=== PATIENT | female | born 1955 | race Caucasian/White ===

== ENCOUNTER → 2018-04-29 10:57 | Outpatient (CLI) | payer OTHER, SELFPAY ==
--- NOTE | 2018-04-29 11:06 | BI_ITS ---
MAMMOGRAPHY - BILATERAL SCREENING REASON FOR EXAM: Female, 62 years old. Routine annual screening examination. PERTINENT HISTORY: Mother with breast cancer. TECHNIQUE: Digital bilateral breast brett (3D mammographic acquisition) in the CC and MLO projections. 2-D mediolateral oblique (MLO) and craniocaudad (CC) views of both breasts were obtained. CAD: Full Field Digital Mammography with Computer Added Detection was performed. COMPARISON: Comparison is made with prior study dated December 31, 2016 and June 24, 2015. FINDINGS: Breast Composition: There are scattered areas of fibroglandular density. There are no dominant masses or suspicious calcifications. Stable benign-appearing bilateral axillary lymph nodes. No other significant abnormalities are identified. There has been no significant change since the prior study. BI/SCREENING MAMM (CAD), BILAT IMPRESSION: Stable bilateral screening mammogram. Yearly follow-up mammogram recommended. (A) ASSESSMENT CATEGORY: BIRADS Category 2: Benign. A letter regarding these results will be sent to the patient by the facility within 30 days. Approximately 10% of breast cancers are not detected by mammography. A normal mammogram should not delay biopsy of a clinically suspicious abnormality. [id number] Electronically Signed: Philip Moreira, at 10:54 EDT , Service support ,
== END ==
PROVIDERS: Family Provider Family Medicine; PCP Family Medicine
DX: Z12.31 Encounter for screening mammogram for malignant neoplasm of breast (principal)
CPT/HCPCS: 77063; 77067

== ENCOUNTER 2019-08-01 16:04 | Emergency (ER) | payer OTHER, SELFPAY ==
[2019-08-01 16:05] VITALS: BP 154/79; PULSE 62; RESP 18; TEMP 36.2; O2SAT 93; BMI 29.8
--- NOTE | 2019-08-01 16:52 | RAD_ITS ---
STUDY: X-RAY CHEST REASON FOR EXAM: Female, 63 years old. pt having altered mental status for about last 2 days. not sleeping, sending weird text to sisters, unsure when she ate last. 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 hx of high anxiety. -- [ End ] TECHNIQUE: AP portable COMPARISON: Jul 05 2013 FINDINGS: The lungs are clear and expanded. There is no demonstrated pleural abnormality. Normal size heart. Normal mediastinum and marcela. Normal visualized pulmonary arteries. Normal visualized aortic arch and descending thoracic aorta. Normal visualized thoracic spine. Normal visualized ribs, clavicles, and shoulders. There is no demonstrated abnormality of the visualized soft tissue structures of the upper abdomen. No significant change since prior exam RAD/Chest 1 View (Portable) IMPRESSION: Normal x-ray examination of the chest. Electronically Signed: Rodrigo Sylvester MD at 18:19 EDT , Service support ,
--- NOTE | 2019-08-01 16:52 | EKG12_ITS ---
Test Reason : Blood Pressure : / mmHG Vent. Rate : 056 BPM Atrial Rate : 056 BPM P-R Int : 154 ms QRS Dur : 082 ms QT Int : 442 ms P-R-T Axes : 021 001 034 degrees QTc Int : 426 ms Sinus bradycardia Otherwise normal ECG Confirmed by CASIMIRO BULL, KODY ([id number]), acquisition editor MEI PULIDO ([id number]) on 08/06/2019 1:57:55 PM Referred By: MARIO Confirmed By:MIHIR KIRKPATRICK MD
--- NOTE | 2019-08-01 16:54 | CT_ITS ---
STUDY: CT BRAIN WITHOUT CONTRAST REASON FOR EXAM: Female, 63 years old. PT STATED MULTIPLE MENTAL STATUS CHANGES X 2 DAYS, CONFUSED RADIATION DOSAGE (If Supplied By Facility): CTDIvol = ( 60.81 ) mGy, DLP = ( 1044.28 ) mGycm TECHNIQUE: Transaxial CT imaging of the brain was performed without administration of intravenous contrast material. Individualized dose optimization techniques were used for this CT. COMPARISON: No relevant priors. FINDINGS: Normal soft tissue structures. Normal calvarium. Moderate atrophy and periventricular white matter ischemic changes.. Normal basal ganglia and thalami. Normal brainstem. Normal cerebellum. Empty sella deformity likely of no significance. There is no intracranial hemorrhage. There are no findings of an acute ischemic infarction. Postsurgical changes of the orbits. Normal visualized paranasal sinuses. CT/Brain/Head without Contrast IMPRESSION: Moderate atrophy and periventricular white matter ischemic change. No evidence for acute bleed. If concern for acute infarct MRI recommended Electronically Signed: Rodrigo Sylvester MD at 18:05 EDT , Service support ,
[2019-08-01 17:04] LABS: Absolute Lymphocyte Count 1.47 X10^3/uL (0.83-4.51); Absolute Neutrophil Count 4.5 X10^3/uL (2.0-7.7); Basophil# 0.02 X10^3/uL; Basophil% 0.3 % (0-1); Eosinophil# 0.02 X10^3/uL; Eosinophils% 0.3 % (0-5); Hematocrit 36.7 % (37-47); Hemoglobin 11.9 g/dL (12.0-15.0); Lymphocyte # 1.47 X10^3/ul (4.0); Lymphocyte % 22.7 % (19-41); Mean Corp Hgb Conc 32.4 g/dL (32-36); Mean Corpuscular Hgb 26.7 pg (27.0-32.0); Mean Corpuscular Volume 82.3 fL (81-99); Monocyte# 0.47 X10^3/uL; Monocyte% 7.3 % (0-10); NRBC Flagged by Analyzer 0 % (0-5); Neutrophil # 4.47 X10^3/uL (2.7-7.7); Neutrophil % 69.1 % (47-70); Platelet Count 226 K/mm3 (150-450); RBC Distribution Width SD 44.4 fl (35.1-43.9); Red Blood Count 4.46 M/mm3 (4.2-5.4); White Blood Count 6.5 K/mm3 (4.4-11.0)
--- NOTE | 2019-08-01 17:11 | ED.VISSUMM ---
- ER Visit Summary Date of Service: 08/01/19 Chief Complaint: Altered mental status History of Present Illness: The patient is a 63 F with altered mental status for 2 to 3 days. History was obtained from the patient and also from her home nurse Maryan. She has at home nurse to help take her medications and because of her severe depression and anxiety. Patient says she felt like I was away for the past couple days. She has been sending unusual text messages to her sister. Her nurse thinks she is not eating or taking her medications. At one point, she told her sister that she was looking for luggage from when she was in the years ago. She has a history of anxiety and depression. She recently started a new medicine, Abilify about 3 weeks ago. She has been hospitalized once for depression in the past. She is denying any suicidal or homicidal thoughts. She also has a history of obstructive sleep apnea, diabetes, and hypertension. Denies any regular alcohol use or drug use. Physical Examination: Afebrile and vital signs unremarkable. Head and neck are atraumatic. Cranial nerves grossly intact. Normal strength and sensation. Normal gait. Normal cerebellar testing. HEENT exam is limited because of a mask but otherwise shows normal inspection. Heart regular. No respiratory distress. Abdomen soft. Skin normal. Patient exhibits psychomotor slowing, slow to respond to questions. Once she begins speaking, she does have some tangential and trailing thoughts. She is slow to answer questions, but seems to get the answers right. Test Results: EKG, labs, urine, tox, alcohol, chest x-ray, CT brain pending Emergency Department Course and Treatment: It sounds like this might be a psychosis related to her depression. This may be worse because she is not taking her medications. She is on Abilify which is new, but she has been on it for 3 weeks. Her psychiatrist did not think that it is causing her symptoms. We will check for other causes. EKG showed sinus rhythm at a rate of 56. Chest x-ray was normal. Troponin normal. CT brain showed chronic changes, atrophy. Nothing acute. Hemoglobin 11.9, glucose 134, alkaline phosphatase 35, coags normal, urinalysis unremarkable, troponin normal. Alcohol negative. TSH normal. Tox screen is positive for methamphetamines and benzos. I suspect the methamphetamines are positive because she is on Wellbutrin. She has no history of methamphetamines and her complaint is not consistent with methamphetamine abuse. Social work evaluated the patient. I spoke with the patient's nurse as well as daughter. Social work spoke with the daughter to. She has good resources at home and will be discharged. There is no indication to admit her to [facility]. There is no indication for medical admission. Patient will return for new or worsening issues, otherwise follow-up as an outpatient. Treatment Plan: As above Disposition: Discharge Impression: Confusion This note was generated with [employer] dictation software. It may contain incorrect words, spelling, and punctuation that were not noted in review of the chart prior to signing ED Disposition - Plan for ED Patient: Referrals: Josi Mejia MD [Primary Care Provider] -
[2019-08-01 17:21] LABS: International Normalized Ratio 1.1; Partial Thromboplast Time 28.6 Seconds (24.1-36.2); Prothrombin Time (Protime)PT. 13.3 SECONDS (11.7-14.9)
[2019-08-01 17:24] LABS: ALB/GLOB Ratio 1.1 RATIO (0.9-2.4); AST(SGOT) 24 U/L (15-37); Alanine Aminotransfer ALT/SGPT 29 U/L (13-56); Albumin, Serum 4.1 g/dL (3.2-5.0); Alkaline Phosphatase 35 U/L (45-117); Anion Gap 7 (5-15); BUN 13 mg/dL (7-18); BUN/Creat Ratio 14.6 RATIO (10-20); Chloride 102 mmol/L (98-107); Creatinine, Serum 0.89 mg/dL (0.55-1.02); EST Glomerular Filtration Rate 68 mL/min (>60); Est Glom Filt Rate - Afr Amer 82 mL/min (>60); Estimated Creatinine Clearance 59.78 ml/min; Globulin 3.7 g/dL (2.2-4.2); Glucose 134 mg/dL (74-106); Potassium 3.8 mmol/L (3.5-5.1); Protein, Total 7.8 g/dL (6.4-8.2); Sodium Level 139 mmol/L (136-145); Thyroid Stim Hormone (TSH) 1.42 uIU/mL (0.358-3.74)
[2019-08-01 17:29] VITALS: BP 148/74; PULSE 59; RESP 12; TEMP 36.9; O2SAT 95
--- NOTE | 2019-08-01 18:10 | CM.ED ---
Social Work Consult: Mental Health Informant: Dr. Jack Chief Complaint: Reports to have been forgetful lately. Marital/Social History: Single Living Situation: Lives alone with 2 dogs. Support/Resources: Patient is 100% service connected. [facility] social media strategist is Jeri. Patient has nurse visits 3 times a week as well as aide services 3 days a week for 2-3 hour blocks. Patient has a medminder and is pending approval for a medical alert button. Patient sister lives close to patient and checks in with patient daily. History: Yes. Retired [employer]. Education/Employment History: Has Masters degree. Was a registered nurse. Currently retired. Reports no concerns with comprehension or understanding. Mental Health Treatment/History: Depression and Anxiety. [facility] mental health via medication. Patient follows with a psychiatric nurse at the [facility]. Patient with history of inpatient psychiatric placement in 1984. Triggers/Stressors: Denies Coping Skills: Spending time with dogs, listening to music, watching nature channel. Abuse Issues: Denies Substance Abuse/Use: Denies. Risk to Self/Others: Denies any suicidal/homicidal thoughts/plans or history of. Mental Status Exam: A&Ox3 Appearance/General Behavior: Clean/appropriate. Mood/Affect: Calm. Pleasant. Communication Pattern: Responds to questions. Thought Process: Appropriate. Denies any hallucinations or delusions. Assessment: Met with patient and patient sister, Lianet in room. Introduced self and social media strategist role. Patient agreeable to meet with this social media strategist. Patient wants sister to stay in room during conversation. Patient states to have came to ED today due to concerns of forgetting to take medications and believes to have missed one dose. Patient states to also be going to patient car to get suite case out as patient is thinking that patient has been traveling at times. Patient denies seeing suite case in car and to be able to correct thinking on own. Patient stating no concerns with returning to home and to have support from [facility] and patient sister. This social media strategist broached topic of patient sister checking in with patient more often and possible consideration of exploring options of patient no living alone anymore. Patient sister and patient voice understanding to this and understand reason for ED doctor concern as well as medical team. At this time patient plans to return to home alone with sister to check in with patient multiple times tomorrow. Patient appears to be copping well outside of recent periods of forgetfulness/confusion. Patient with no depression noted from PHQ-[address] Jack on above assessment. Dr. Jack initially wondering if patient would qualify for baudilio-psych. Patient does not appear to be meeting criteria at this time. Dr. Jack agreeable with plan for patient to discharge to home with continued services and support from sister. PLAN: Discharge to home alone with community resources. Garrick Arizmendi MSW, KAILYN
[2019-08-01 18:34] LABS: Alcohol, Blood (Medical)-Serum < 3.0 mg/dL
[2019-08-01 19:08] LABS: Mucous, Urine 0 SEEN /hpf (<or=2+); Red Blood Cells-Urine 0 SEEN /hpf (0-5)
[2019-08-01 19:13] VITALS: PULSE 58; RESP 19; TEMP 37.3; O2SAT 95
[2019-08-01 19:29] LABS: Color, Urine Yellow (Yellow); Glucose, Dipstick Normal (Normal); Ketone-Dipstick 15 mg/dl (Negative); Leukocyte Esterase-Dipstick Negative /ul (Negative); Nitrite-Dipstick Negative (Negative); Occult Blood-Urine Negative /ul (Negative); Protein-Dipstick Negative (Negative); Urine Bilirubin Dipstick Negative (Negative); Urine Clarity Sl. Cloudy (Clear); Urine Urobilinogen Normal (Normal)
[2019-08-01 19:37] LABS: Squamous Epithelial Cells - UA 0-5 SEEN /hpf (5-10); White Blood Cells 0-5 SEEN /hpf (0-5)
[2019-08-01 19:38] LABS: Bacteria RARE /hpf (None Seen)
[2019-08-01 19:47] LABS: Amphetamine Urine VISTA NEGATIVE (<1000 ng/mL); Barbiturate Urine VISTA NEGATIVE (< 200 ng/mL); Benzodiazepine Urine VISTA POSITIVE (< 200 ng/mL); Cocaine Urine VISTA NEGATIVE (< 300 ng/mL); Ecstacy Urine VISTA POSITIVE (< 500 ng/mL); Methadone Urine VISTA NEGATIVE (< 300 ng/mL); PCP Urine VISTA NEGATIVE (< 25 ng/mL); THC Urine VISTA NEGATIVE (< 50 ng/mL); Vista UDS pH Range 5
--- NOTE | 2019-08-01 20:04 | ED.DEP ---
ED Disposition - Plan for ED Patient: Instructions: ED Confusion Referrals: Josi Mejia MD [Primary Care Provider] - Additional Instructions: Tox screen positive for methamphetamines. This is a cross reaction with your prescribed wellbutrin and not a true positive.
[2019-08-01 20:16] VITALS: PULSE 60; RESP 18
== END 2019-08-01 20:17 | disposition home or self-care (01) ==
LOC: ED 17:04
PROVIDERS: Emergency Provider Emergency Medicine; PCP Family Medicine
DX: R41.82 Altered mental status, unspecified (principal); Z91.14 Patient's other noncompliance with medication regimen; F32.9 Major depressive disorder, single episode, unspecified; F41.9 Anxiety disorder, unspecified; I10 Essential (primary) hypertension; E11.9 Type 2 diabetes mellitus without complications; G47.33 Obstructive sleep apnea (adult) (pediatric); Z79.899 Other long term (current) drug therapy
CPT/HCPCS: 70450; 71045; 80053; 80307; 80320; 81001; 84443; 84484; 85025; 85610; 85730; 93005; 99284; G0480

== ENCOUNTER → 2019-09-14 12:37 | Outpatient (CLI) | payer OTHER, SELFPAY ==
--- NOTE | 2019-09-14 12:40 | RAD_ITS ---
STUDY: X-RAY - RIGHT WRIST REASON FOR EXAM: Female, 63 years old. Right wrist pain, fell beginning of July TECHNIQUE: 3 view(s) of the wrist were obtained. COMPARISON: None. FINDINGS: Normal visualized distal radius and ulna. There is degenerative arthrosis of the radiocarpal articulation. Normal distal radioulnar articulation. Normal carpal bones. Normal carpal articulations except for narrowing between the scaphoid and trapezium.. There is degenerative arthrosis of the carpometacarpal articulation of the thumb. Normal second through fifth carpometacarpal articulations. Normal visualized metacarpal bones. The soft tissue structures are unremarkable. There is no demonstrated acute fracture. RAD/Wrist min 3 Views IMPRESSION: Mild arthrosis, no demonstrated fracture or suspicious osseous lesion Electronically Signed: Umesh Neri MD at 12:58 EDT , Service support ,
== END ==
PROVIDERS: PCP Family Medicine; Referring Provider Family Medicine; Visit Provider Family Medicine
DX: M25.531 Pain in right wrist (principal)
CPT/HCPCS: 73110

== ENCOUNTER → 2020-06-11 07:42 | Outpatient (CLI) | payer OTHER, SELFPAY ==
--- NOTE | 2020-06-11 07:46 | BI_ITS ---
MAMMOGRAPHY - BILATERAL SCREENING REASON FOR EXAM: Female, 64 years old. Routine annual screening examination. PERTINENT HISTORY: Mother with breast cancer. TECHNIQUE: Digital bilateral breast niranjan (3D mammographic acquisition) in the CC and MLO projections. 2-D mediolateral oblique (MLO) and craniocaudad (CC) views of both breasts were obtained. CAD: Full Field Digital Mammography with Computer Added Detection was performed. COMPARISON: Comparison is made with prior study dated 04/29/2018 and 12/31/2016. FINDINGS: Breast Composition: There are scattered areas of fibroglandular density. There are no dominant masses or suspicious calcifications. Stable benign-appearing bilateral axillary lymph nodes. No other significant abnormalities are identified. There has been no significant change since the prior study. BI/SCRN MAMM (CAD)W/NIRANJAN BILAT IMPRESSION: Stable bilateral screening mammogram. Yearly follow-up mammogram recommended. (A) ASSESSMENT CATEGORY: BIRADS Category 2: Benign. A letter regarding these results will be sent to the patient by the facility within 30 days. Approximately 10% of breast cancers are not detected by mammography. A normal mammogram should not delay biopsy of a clinically suspicious abnormality. [id number] Electronically Signed: Philip Moreira MD at 9:19 EDT , Service support ,
== END ==
PROVIDERS: PCP Family Medicine
DX: Z12.31 Encounter for screening mammogram for malignant neoplasm of breast (principal)
CPT/HCPCS: 77063; 77067

== ENCOUNTER → 2020-06-13 16:12 | Outpatient (CLI) | payer OTHER, MEDICARE, SELFPAY ==
[2020-06-13 18:41] LABS: ALB/GLOB Ratio 1.1 RATIO (0.9-2.4); AST(SGOT) 14 U/L (15-37); Alanine Aminotransfer ALT/SGPT 19 U/L (13-56); Albumin, Serum 3.7 g/dL (3.2-5.0); Alkaline Phosphatase 36 U/L (45-117); Anion Gap 7 (5-15); BUN 14 mg/dL (7-18); BUN/Creat Ratio 14.7 RATIO (10-20); Calcium,Total 8.6 mg/dL (8.5-10.1); Chloride 98 mmol/L (98-107); Creatinine, Serum 0.95 mg/dL (0.55-1.02); EST Glomerular Filtration Rate 62 mL/min (>60); Est Glom Filt Rate - Afr Amer 75 mL/min (>60); Globulin 3.5 g/dL (2.2-4.2); Glucose 526 mg/dL (74-106); Potassium 4.2 mmol/L (3.5-5.1); Protein, Total 7.2 g/dL (6.4-8.2); Sodium Level 131 mmol/L (136-145)
== END ==
DX: I10 Essential (primary) hypertension (principal); E11.9 Type 2 diabetes mellitus without complications
CPT/HCPCS: 36415; 80053; 83036; 84443

== ENCOUNTER 2020-07-10 01:38 | Emergency (ER) | payer MEDICARE, OTHER, SELFPAY ==
[2020-07-10 01:39] VITALS: BP 181/88; PULSE 75; RESP 16; TEMP 36.5; O2SAT 94; BMI 31.0
[2020-07-10 01:42] VITALS: BP 181/88; PULSE 75; RESP 16; TEMP 36.5; O2SAT 94
[2020-07-10 02:16] VITALS: BP 143/75; PULSE 78; RESP 17; TEMP 36.4; O2SAT 98
--- NOTE | 2020-07-10 02:35 | EDS_ITS ---
HPI History of Present Illness Chief Complaint: Wound Informant: patient Onset/Context/Timing Onset: Today Context: Gradual Onset Timing: Continuous Quality of Pain: Throbbing Location: Right foot second toe Current Severity: Mild Maximum Severity: Moderate Worsened by: walking, palpation Relieved by: aleve that she took earlier, rest Associated Symptoms Associated Symptoms: Negative for Parasthesia, Weakness and Loss of Funtion Narrative Narrative: Patient states she was working in her garden today when she noticed that her toe started throbbing and hurting and she wondered if she injured it which she does not recall any specific injury. She has no systemic symptoms or fevers but she is a diabetic, and since this is on her foot and she has never had any issues before, she was concerned that this could be a diabetic ulcer so she presents for evaluation of it. She has had no discharge from the area. [facility] Medical History Depression Diabetes GERD (gastroesophageal reflux disease) Hypertension TIA (transient ischemic attack) Home Medications Divalproex Sodium 750 mg PO DAILY 08/01/19 [History Last Taken Unknown] aripiprazole 2 mg PO DAILY 08/01/19 [History Last Taken Unknown] atenolol 50 mg PO DAILY 08/01/19 [History Last Taken Unknown] bupropion HCl (smoking deter) 150 mg PO DAILY 08/01/19 [History Last Taken Unknown] cholecalciferol (vitamin D3) 2,000 unit PO DAILY 08/01/19 [History Last Taken Unknown] clobetasol-emollient 15 gm TP DAILY 08/01/19 [History Last Taken Unknown] desonide 1 applic TOPICAL BID 08/01/19 [History Last Taken Unknown] fnomyijoyj-gwxucfyocxp-zmaizw 30 gm TP BID 08/01/19 [History Last Taken Unknown] fluticasone propionate 1 spray NS DAILY 08/01/19 [History Last Taken Unknown] insulin aspart U-100 8 unit SQ TIDCM 08/01/19 [History Last Taken Unknown] insulin glargine 23 units SUBCUT QHS 08/01/19 [History Last Taken Unknown] levothyroxine 75 mcg PO DAILY 08/01/19 [History Last Taken Unknown] metformin 1,000 mg PO DAILY 08/01/19 [History Last Taken Unknown] montelukast 10 mg PO DAILY 08/01/19 [History Last Taken Unknown] multivitamin 1 ea PO DAILY 08/01/19 [History Last Taken Unknown] pantoprazole 20 mg PO DAILY 08/01/19 [History Last Taken Unknown] rosuvastatin 40 mg PO DAILY 08/01/19 [History Last Taken Unknown] sertraline 100 mg PO DAILY 08/01/19 [History Last Taken Unknown] trazodone 100 mg PO QHS 08/01/19 [History Last Taken Unknown] cephalexin 500 mg PO TID 7 Days #21 capsule 07/10/20 [Rx Last Taken Unknown] Allergy/AdvReac Type Severity Reaction Status Date / Time No Known Allergies Allergy Verified 08/01/19 16:10 Social History Smoking Status: Never smoker ROS ROS ED Constitutional Constitutional ED: Denies chills or fever(s) Musculoskeletal Musculoskeletal: Reports extremity pain; Denies neck pain Integumentary Reports abscess; Denies Abrasions or rash Neurologic Neurologic: Denies paresthesias or weakness EXAM Physical Exam Const Vital Signs: 07/10/20 01:39 07/10/20 01:42 07/10/20 02:16 Temperature 97.7 F L 97.7 F L 97.6 F L Temperature Source Oral Oral Temporal Pulse Rate 75 75 78 Respiratory Rate 16 16 17 Blood Pressure 181/88 H 181/88 H 143/75 H Blood Pressure Mean 119 119 97 Pulse Ox 94 94 98 Oxygen Delivery Method Room Air Room Air Room Air Positive well nourished and well developed General Appearance ED: well developed and NAD Neck full ROM and supple Back/Spine normal ROM and normal to inspection Extremity Extremity Narrative: Small tender paronychia without spontaneous discharge at the peroneal aspect of the right second toenail, with tender erythema along the entire base of the nail. Nail is intact. Full range of motion. No other foot abnormalities. Neuro oriented x3, no focal motor deficits and no sensory deficits noted Sensorium / Orientation: alert Psych mental status grossly normal and thought process normal Skin Skin Narrative: Paronychia right second toe, see above. Cellulitis extends around the paronychia and the nail, but not proximal to the IP joint. No lymphangitis. Foot otherwise normal. No plantar ulcers or wounds otherwise. Rashes: no rashes MDM MDM MDM Narrative Medical decision making narrative: Patient appears to have a straightforward paronychia, I reassured her this is not likely due to any injury that she had today. She was amenable to incision and drainage without local anesthesia or digital block. She tolerated this very well. Placed on cephalexin as I do not believe this is MRSA given that it is very small. We discussed reasons to return she is comfortable with that plan. We soaked her foot/toe and chlorhexidine/saline prior to discharge, dressed with bacitracin. Procedures Other Procedures Procedure(s): Incision and drainage paronychia right second toe -prepped with chlorhexidine, small central incision over the paronychia made with a #11 blade, tolerated procedure well without pain, purulent discharge expressed, soaked, dressed. Discharge Plan Triage Chief Complaint: Wound ED Provider: Pablo Hernandez Dx/Rx/DC Orders Clinical Impression: Paronychia of toe of right foot Instructions: ED Paronychia of the Finger or Toe Prescriptions: New cephalexin [cephalexin] 500 MG capsule 500 mg PO TID 7 Days Qty: 21 RF: 0 No Action desonide 1 APPLIC cream 1 applic topical BID RF: 0 fluticasone propionate 9.9 ML spray,suspension 1 spray NS DAILY RF: 0 atenolol 50 MG tablet 50 mg PO DAILY RF: 0 clobetasol-emollient 15 GM cream 15 gm TP DAILY RF: 0 aripiprazole 2 MG tablet 2 mg PO DAILY RF: 0 cholecalciferol (vitamin D3) 2,000 UNIT capsule 2,000 unit PO DAILY RF: 0 bupropion HCl (smoking deter) 150 MG tablet extended release 12 hr 150 mg PO DAILY RF: 0 vbhxrufokl-suoxqrcvpey-qjhfsd 30 GM gel 30 gm TP BID RF: 0 Divalproex Sodium 250 MG Tablet.Dr 750 mg PO DAILY RF: 0 multivitamin 1 EACH tablet 1 ea PO DAILY RF: 0 sertraline 100 MG tablet 100 mg PO DAILY RF: 0 pantoprazole 20 MG tablet,delayed release (DR/EC) 20 mg PO DAILY RF: 0 levothyroxine 75 MCG tablet 75 mcg PO DAILY RF: 0 trazodone 100 MG tablet 100 mg PO QHS RF: 0 metformin 1,000 MG tablet 1,000 mg PO DAILY RF: 0 montelukast 10 MG tablet 10 mg PO DAILY RF: 0 insulin aspart U-100 100 UNIT/ML insulin pen 8 unit SQ TIDCM RF: 0 rosuvastatin 40 MG tablet 40 mg PO DAILY RF: 0 insulin glargine 100 UNITS/ML insulin pen 23 units subcut QHS RF: 0 Referrals: SALLY GUY [Other] - As Needed Disposition Disposition: Home, self care
[2020-07-10] MEDS: Cephalexin 500 MG Capsule PO (02:47)
[2020-07-10 03:21] VITALS: BP 160/78; PULSE 73; RESP 17; RESP 18; TEMP 36.3; O2SAT 97; O2SAT 98
== END 2020-07-10 03:22 | disposition home or self-care (01) ==
PROVIDERS: Emergency Provider Emergency Medicine
DX: L03.031 Cellulitis of right toe (principal); I10 Essential (primary) hypertension; E11.9 Type 2 diabetes mellitus without complications; F32.9 Major depressive disorder, single episode, unspecified; K21.9 Gastro-esophageal reflux disease without esophagitis; Z86.73 Personal history of transient ischemic attack (TIA), and cerebral infarction without residual deficits; Z79.4 Long term (current) use of insulin; Z79.899 Other long term (current) drug therapy
CPT/HCPCS: 10060; 99283

== ENCOUNTER 2021-05-26 20:44 | Emergency (ER) | payer OTHER, SELFPAY ==
[2021-05-26 20:45] VITALS: BP 141/72; PULSE 63; RESP 16; TEMP 36.2; O2SAT 98; BMI 28.6
--- NOTE | 2021-05-26 20:49 | EKG12_ITS ---
Test Reason : CP Blood Pressure : / mmHG Vent. Rate : 053 BPM Atrial Rate : 053 BPM P-R Int : 164 ms QRS Dur : 090 ms QT Int : 450 ms P-R-T Axes : 029 032 051 degrees QTc Int : 422 ms Sinus bradycardia Otherwise normal ECG Confirmed by OLIVIA ZHU MD ([id number]), design editor CLAUDIO IVORY ([id number]) on 05/27/2021 2:12:28 PM Referred By: MALIKA Confirmed By:OLIVIA ZHU MD
--- NOTE | 2021-05-26 21:28 | RAD_ITS ---
INDICATION: chest pain EXAMINATION/TECHNIQUE: X-RAY - XR Chest 1 View 9:22 PM COMPARISON: 08/01/2019. FINDINGS: LUNGS: No consolidation. No pneumothorax. MEDIASTINUM: Unremarkable. CARDIAC SILHOUETTE: Not enlarged. BONES AND SOFT TISSUES: No acute abnormalities. IMPRESSION: No acute findings. Electronically Signed: Varsha Fairchild MD at 22:01 EDT , RAD/Chest 1 View (Portable)
[2021-05-26 21:54] LABS: Absolute Lymphocyte Count 2.33 X10^3/uL (0.83-4.51); Absolute Neutrophil Count 3.3 X10^3/uL (2.0-7.7); Basophil# 0.03 X10^3/uL; Basophil% 0.5 % (0-1); Eosinophil# 0.08 X10^3/uL; Eosinophils% 1.3 % (0-5); Hematocrit 37.3 % (37-47); Hemoglobin 12.3 g/dL (12.0-15.0); Lymphocyte # 2.33 X10^3/ul (0.83-4.51); Lymphocyte % 37.1 % (19-41); Mean Corpuscular Hgb 27.1 pg (27.0-32.0); Mean Corpuscular Volume 82.2 fL (81-99); Monocyte# 0.48 X10^3/uL; Monocyte% 7.6 % (0-10); NRBC Flagged by Analyzer 0 % (0-5); Neutrophil # 3.34 X10^3/uL (2.7-7.7); Neutrophil % 53.2 % (47-70); Platelet Count 218 K/mm3 (150-450); RBC Distribution Width CV 15.5 % (11.6-14.6); RBC Distribution Width SD 46.5 fl (35.1-43.9); Red Blood Count 4.54 M/mm3 (4.2-5.4); White Blood Count 6.3 K/mm3 (4.4-11.0)
[2021-05-26 22:10] LABS: Anion Gap 7 (5-15); BUN 20 mg/dL (7-18); BUN/Creat Ratio 22.7 RATIO (10-20); Calcium,Total 9.1 mg/dL (8.5-10.1); Chloride 103 mmol/L (98-107); Creatinine, Serum 0.88 mg/dL (0.55-1.02); EST Glomerular Filtration Rate 68 mL/min (>60); Est Glom Filt Rate - Afr Amer 82 mL/min (>60); Estimated Creatinine Clearance 58.87 ml/min; Glucose 163 mg/dL (74-106); Potassium 4.1 mmol/L (3.5-5.1); Sodium Level 138 mmol/L (136-145); Troponin-I HS < 3 pg/mL (3.0-54.0)
[2021-05-26] MEDS: Aspirin 81 MG TAB.CHEW 243 MG PO (22:13)
--- NOTE | 2021-05-26 22:41 | ED.VIS.CHEST ---
HPI History of Present Illness Chief Complaint: Chest Pain Informant: patient Onset/Context/Timing Onset: Today Activity at onset: sudden Timing: Lasts (30 seconds) Quality: Positive for Pain Location: Substernal Current Severity: Gone Maximum Severity: Moderate Narrative Narrative: Patient presents after having her third episode of chest pain in the last week. She states she was sitting at rest this evening when she developed pain over the substernal area. Symptoms lasted approximately 30 seconds and spontaneously resolved. She denies having palpitations or feeling her heart was racing. She did not feel short of breath. She did not feel as if she was went to pass out. She reports 2 prior episodes in the last week with similar symptoms lasting less than 1 minute each. Patient does not have a personal history of cardiac problems. Family history is only positive for a pacemaker in her father. [facility] Medical History Depression Diabetes GERD (gastroesophageal reflux disease) Hypertension TIA (transient ischemic attack) Home Medications Divalproex Sodium 750 mg PO DAILY 08/01/19 [History Last Taken Unknown] aripiprazole 2 mg PO DAILY 08/01/19 [History Last Taken Unknown] atenolol 50 mg PO DAILY 08/01/19 [History Last Taken Unknown] bupropion HCl (smoking deter) 150 mg PO DAILY 08/01/19 [History Last Taken Unknown] cholecalciferol (vitamin D3) 2,000 unit PO DAILY 08/01/19 [History Last Taken Unknown] clobetasol-emollient 15 gm TP DAILY 08/01/19 [History Last Taken Unknown] desonide 1 applic TOPICAL BID 08/01/19 [History Last Taken Unknown] wuaiexdems-pikwzaxwhtz-ttdpof 30 gm TP BID 08/01/19 [History Last Taken Unknown] fluticasone propionate 1 spray NS DAILY 08/01/19 [History Last Taken Unknown] insulin aspart U-100 8 unit SQ TIDCM 08/01/19 [History Last Taken Unknown] insulin glargine 23 units SUBCUT QHS 08/01/19 [History Last Taken Unknown] levothyroxine 75 mcg PO DAILY 08/01/19 [History Last Taken Unknown] metformin 1,000 mg PO DAILY 08/01/19 [History Last Taken Unknown] montelukast 10 mg PO DAILY 08/01/19 [History Last Taken Unknown] multivitamin 1 ea PO DAILY 08/01/19 [History Last Taken Unknown] pantoprazole 20 mg PO DAILY 08/01/19 [History Last Taken Unknown] rosuvastatin 40 mg PO DAILY 08/01/19 [History Last Taken Unknown] sertraline 100 mg PO DAILY 08/01/19 [History Last Taken Unknown] trazodone 100 mg PO QHS 08/01/19 [History Last Taken Unknown] cephalexin 500 mg PO TID 7 Days #21 capsule 07/10/20 [Rx Last Taken Unknown] Allergy/AdvReac Type Severity Reaction Status Date / Time No Known Allergies Allergy Verified 05/26/21 20:45 Social History Smoking Status: Never smoker ROS ROS ED Constitutional Constitutional ED: Denies chills or fever(s) Eyes Eyes: Denies change in vision ENT ENT ED: Denies sore throat Cardiovascular Cardiovascular: Reports chest pain Respiratory/Chest Respiratory/Chest: Denies cough or dyspnea Gastrointestinal Gastrointestinal: Denies abdominal pain, nausea or vomiting Genitourinary Genitourinary ED: Denies dysuria Musculoskeletal Musculoskeletal: Denies back pain Integumentary Denies rash Neurologic Neurologic: Denies headache(s) or weakness Allergic/Immunologic Allergic/Immunologic ED: Denies urticaria EXAM Physical Exam Const Vital Signs: 05/26/21 20:45 05/26/21 21:37 05/26/21 22:47 Temperature 97.2 F L Temperature Source Temporal Pulse Rate 63 Respiratory Rate 16 Respiratory Effort Normal Non-Labored Blood Pressure 141/72 H 129/60 H Blood Pressure Mean 95 Pulse Ox 98 Oxygen Delivery Method Room Air Room Air Positive well nourished and well developed General Appearance ED: well developed HEENT Reports moist mucous membranes normocephalic and atraumatic Eyes PERRL and EOMs intact bilaterally Neck supple Chest Wall inspection of chest normal and palpation of chest normal Resp normal respiratory effort Effort and Inspection: respiratory distress Cardio regular rate and regular rhythm GI normal to inspection, nondistended, normoactive bowel sounds, soft to palpation and non-tender Extremity normal to inspection Neuro Sensorium / Orientation: awake and alert Psych mental status grossly normal Skin no rashes or lesions noted Heart Score History: Slightly/Non-Suspicious ECG: Normal Age: >/= 65 years Risk Factors: 1 or 2 Risk Factors Troponin: </= Normal Limit Score: 3 MDM MDM MDM Narrative Medical decision making narrative: Patient had taken 1 baby aspirin today. She was given 3 additional baby aspirin on arrival. EKG, chest x-ray, lab work obtained. Lab Data Attestation: I reviewed the patient's lab results. Labs: Laboratory Results - last 24 hr 05/26/21 05/26/21 21:38 21:38 WBC 6.3 RBC 4.54 Hgb 12.3 Hct 37.3 MCV 82.2 MCH 27.1 MCHC 33.0 RDW Std Deviation 46.5 H RDW Coeff of Lacie 15.5 H Plt Count 218 MPV 10.0 Immature Gran % (Auto) 0.300 Neut % (Auto) 53.2 Lymph % (Auto) 37.1 Payette % (Auto) 7.6 Eos % (Auto) 1.3 Baso % (Auto) 0.5 Absolute Neuts (auto) 3.3 Absolute Lymphs (auto) 2.33 Nucleated RBC % 0 Sodium 138 Potassium 4.1 Chloride 103 Carbon Dioxide 28.0 Anion Gap 7 BUN 20 H Creatinine 0.88 Estim Creat Clear Calc 58.87 Est GFR (MDRD) Af Amer 82 Est GFR (MDRD) Non-Af 68 BUN/Creatinine Ratio 22.7 H Glucose 163 H Calcium 9.1 Troponin I High Sens < 3 L Radiography Chest X-Ray - ED: 1 View, Read by ED Physician, Normal, Heart, Lungs and Mediastinum Diagnostic Testing: Clinical Impression(s) from Imaging Studies Chest X-Ray 05/26/21 21:28 IMPRESSION: No acute findings. EKG Initial EKG: Interpretation: Sinus Bradycardia (Sinus bradycardia 53 bpm. No acute ischemia.) Treatment and Re-Evaluation Narrative: On repeat evaluation patient is resting comfortably. She is had no further episodes of chest pain here. Test results are discussed with her. Pain sounds very atypical for cardiac etiology and her troponin is less than 3. Return instructions are provided. I did encourage her to follow-up with her primary care doctor for potential stress test that she has not had this performed. Discharge Plan Triage Chief Complaint: Chest Pain ED Provider: Ana Blackburn Dx/Rx/DC Orders Clinical Impression: Atypical chest pain Instructions: ED Chest Pain, Noncardiac Prescriptions: No Action desonide 1 APPLIC cream 1 applic topical BID RF: 0 fluticasone propionate 9.9 ML spray,suspension 1 spray NS DAILY RF: 0 atenolol 50 MG tablet 50 mg PO DAILY RF: 0 clobetasol-emollient 15 GM cream 15 gm TP DAILY RF: 0 aripiprazole 2 MG tablet 2 mg PO DAILY RF: 0 cholecalciferol (vitamin D3) 2,000 UNIT capsule 2,000 unit PO DAILY RF: 0 bupropion HCl (smoking deter) 150 MG tablet extended release 12 hr 150 mg PO DAILY RF: 0 gkemibugkx-lcsjvmgcmpy-uuvtid 30 GM gel 30 gm TP BID RF: 0 Divalproex Sodium 250 MG Tablet.Dr 750 mg PO DAILY RF: 0 multivitamin 1 EACH tablet 1 ea PO DAILY RF: 0 sertraline 100 MG tablet 100 mg PO DAILY RF: 0 pantoprazole 20 MG tablet,delayed release (DR/EC) 20 mg PO DAILY RF: 0 levothyroxine 75 MCG tablet 75 mcg PO DAILY RF: 0 trazodone 100 MG tablet 100 mg PO QHS RF: 0 metformin 1,000 MG tablet 1,000 mg PO DAILY RF: 0 montelukast 10 MG tablet 10 mg PO DAILY RF: 0 insulin aspart U-100 100 UNIT/ML insulin pen 8 unit SQ TIDCM RF: 0 rosuvastatin 40 MG tablet 40 mg PO DAILY RF: 0 insulin glargine 100 UNITS/ML insulin pen 23 units subcut QHS RF: 0 cephalexin [cephalexin] 500 MG capsule 500 mg PO TID 7 Days Qty: 21 RF: 0 [facility] - 1 Week Disposition Disposition: Home, Self Care Discharge Date/Time: 05/26/21 22:48
[2021-05-26 22:47] VITALS: BP 129/60
== END 2021-05-26 22:48 | disposition home or self-care (01) ==
PROVIDERS: Emergency Provider Emergency Medicine; Visit Provider Emergency Medicine
DX: R07.89 Other chest pain (principal); E11.9 Type 2 diabetes mellitus without complications; Z79.4 Long term (current) use of insulin; I10 Essential (primary) hypertension; F32.A Depression, unspecified; K21.9 Gastro-esophageal reflux disease without esophagitis; Z86.73 Personal history of transient ischemic attack (TIA), and cerebral infarction without residual deficits; Z79.899 Other long term (current) drug therapy
CPT/HCPCS: 71045; 80048; 84484; 85025; 93005; 99284; A4216

== ENCOUNTER → 2021-07-27 | Outpatient (CLI) | payer OTHER, SELFPAY ==
--- NOTE | 2021-07-27 07:54 | BI_ITS ---
MAMMOGRAPHY - BILATERAL SCREENING REASON FOR EXAM: Female, 65 years old. Routine annual screening examination. PERTINENT HISTORY: Mother with breast cancer. Remote stereotactic breast biopsy. TECHNIQUE: Digital bilateral breast niranjan (3D mammographic acquisition) in the CC and MLO projections. 2-D mediolateral oblique (MLO) and craniocaudad (CC) views of both breasts were obtained. CAD: Full Field Digital Mammography with Computer Added Detection was performed. COMPARISON: Comparison is made with prior study dated 06/11/2020 and 04/29/2018. FINDINGS: Breast Composition: There are scattered areas of fibroglandular density. There are no dominant masses or suspicious calcifications. Stable benign-appearing bilateral axillary lymph nodes. No other significant abnormalities are identified. There has been no significant change since the prior study. BI/SCRN MAMM (CAD)W/NIRANJAN BILAT IMPRESSION: Stable bilateral screening mammogram. Yearly follow-up mammogram recommended. (A) ASSESSMENT CATEGORY: BIRADS Category 2: Benign. A letter regarding these results will be sent to the patient by the facility within 30 days. Approximately 10% of breast cancers are not detected by mammography. A normal mammogram should not delay biopsy of a clinically suspicious abnormality. [id number] Electronically Signed: Philip Moreira MD at 8:34 EDT ,
== END | disposition home or self-care (01) ==
DX: Z12.31 Encounter for screening mammogram for malignant neoplasm of breast (principal)
CPT/HCPCS: 77063; 77067

== ENCOUNTER → 2021-10-28 | Outpatient (CLI) | payer MEDICARE, OTHER, SELFPAY ==
--- NOTE | 2021-10-28 08:00 | US_ITS ---
STUDY: ABDOMINAL ULTRASOUND - RIGHT UPPER QUADRANT REASON FOR VISIT: Female, 65 years old epigastric pain TECHNIQUE: Ultrasound evaluation of the right upper quadrant was performed with real-time and static aceves-scale imaging. TECHNICAL QUALITY: Adequate. COMPARISON: None. FINDINGS: Liver: The liver measures 16.0 cm. There is normal echogenicity of the liver. The bile ducts are within normal limits. There is hepatic color flow. The direction of portal flow is hepatopetal. There is no demonstrated mass lesion. Gallbladder: Normal distended gallbladder. The gallbladder wall measures 1.5 mm. There is a negative sonographic Norman''s sign. There is no pericholecystic fluid. There are no gallstones. Common Bile Duct (C.B.D.): The common bile duct measures 3.3 mm. Pancreas: Normal size of the head, body and tail of the pancreas. There is normal echogenicity of the pancreas. There is no demonstrated pancreatic mass or cyst. Right Kidney: Normal size of the right kidney. The right kidney measures 10.5 cm in length. Normal renal cortex. There is no demonstrated renal mass or cyst. There is no right hydronephrosis. US/Gallbladder IMPRESSION: Within normal limits right upper quadrant ultrasound examination. Electronically Signed: Tiana Waldron MD at 8:51 EDT ,
== END | disposition home or self-care (01) ==
PROVIDERS: Referring Provider Surgery; Visit Provider Surgery
DX: K21.9 Gastro-esophageal reflux disease without esophagitis (principal); R10.13 Epigastric pain
CPT/HCPCS: 76705

== ENCOUNTER 2021-11-10 08:38 | Day surgery (SDC) | payer MEDICARE, OTHER, SELFPAY ==
--- NOTE | 2021-11-10 08:53 | PCM.HP.BLA ---
History and Physical Date of Admission: 11/10/21 Visit Reasons:?EGD AND COLONOSCOPY Chief Complaint: EGD and colonoscopy Supervisor Delivery Department Required: No Is patient in pain?: No Allergies No Known Allergies Allergy (Verified 09/08/21 08:09) Medications Divalproex Sodium 750 mg PO DAILY 08/01/19 [History Confirmed 09/08/21] aripiprazole 2 mg tablet 2 mg PO DAILY 08/01/19 [History Confirmed 09/08/21] atenolol 50 mg tablet 50 mg PO DAILY 08/01/19 [History Confirmed 09/08/21] bupropion HCl (smoking deter) 150 mg tablet,12 hr sustained-release(smoking deterrent) 150 mg PO DAILY 08/01/19 [History Confirmed 09/08/21] cholecalciferol (vitamin D3) 50 mcg (2,000 unit) capsule 2,000 unit PO DAILY 08/01/19 [History Confirmed 09/08/21] clobetasol-emollient 0.05 % topical cream 15 g TP DAILY 08/01/19 [History Confirmed 09/08/21] desonide 0.05 % topical cream 1 applic topical BID 08/01/19 [History Confirmed 09/08/21] diclofenac 3 %-hyaluronate 2 %-niacinamide 4 % topical gel 30 g TP BID 08/01/19 [History Confirmed 09/08/21] fluticasone propionate 50 mcg/actuation nasal spray,suspension 1 spray NS DAILY 08/01/19 [History Confirmed 09/08/21] insulin aspart U-100 100 unit/mL (3 mL) subcutaneous pen 8 unit SQ TIDCM 08/01/19 [History Confirmed 09/08/21] insulin glargine 100 unit/mL (3 mL) subcutaneous pen 23 units subcut QHS 08/01/19 [History Confirmed 09/08/21] levothyroxine 75 mcg tablet 75 mcg PO DAILY 08/01/19 [History Confirmed 09/08/21] metformin 1,000 mg tablet 1,000 mg PO DAILY 08/01/19 [History Confirmed 09/08/21] montelukast 10 mg tablet 10 mg PO DAILY 08/01/19 [History Confirmed 09/08/21] multivitamin 1 ea PO DAILY 08/01/19 [History Confirmed 09/08/21] pantoprazole 20 mg tablet,delayed release 20 mg PO DAILY 08/01/19 [History Confirmed 09/08/21] rosuvastatin 40 mg tablet 40 mg PO DAILY 08/01/19 [History Confirmed 09/08/21] sertraline 100 mg tablet 100 mg PO DAILY 08/01/19 [History Confirmed 09/08/21] trazodone 100 mg tablet 100 mg PO QHS 08/01/19 [History Confirmed 09/08/21] cephalexin 500 mg capsule 500 mg PO TID 7 days #21 CAPSULES 07/10/20 [Rx Confirmed 09/08/21] PFSH Medical History?(Updated 09/08/21 @ 08:14 by Daisy Meyers) Depression Diabetes GERD (gastroesophageal reflux disease) Hypertension TIA (transient ischemic attack) Surgical History?(Updated 09/08/21 @ 08:08 by Jennyfer Regalado) S/P cataract extraction Social History? Smoking Status:? Never smoker HPI HPI HPI: DC KUHN, is a 65 F who presents to the office today for surgical consideration of a combined esophagogastroduodenoscopy and colonoscopy.? She was most recently seen in the emergency room on May 26, 2021 because of atypical chest pain.? She gets the majority of her health care via the [place] [facility].? The patient is being referred by the [place] [facility] for combined upper and lower endoscopy and a written copy of my surgical consult and recommendations will return to them. Patient states couple years ago she had a TIA which severely affects her memory.? There is no current record in the [place] [facility] of her having a colonoscopy but she thinks she may have had one before.? She admits that when she was in the emergency room being evaluated that there was no etiology to the retrosternal/epigastric pain.? She was not pursued with a gallbladder ultrasound.? She was not at that point pursued with an upper endoscopy.? It is clear during discussion with her that her memory disruption does have an input as to her medical history and how she can participate with this. ROS General General: Yes weight change; No appetite, fatigue, colon cancer, breast cancer or weakness Additional Details: unintended weight loss HEENT HEENT: Yes difficulty swallowing and eye surgery; No eye injury, swollen glands or hoarseness Additional Details: cataract surgery Endo Endocrine: Yes thyroid disease and diabetes mellitus; No thyroid cancer, Hair loss, heat intolerance or cold intolerance Additional Details: hypothyroidism, type 2 diabetes Skin Skin: No rash or changing moles Breast Breast: No left breast lump, right breast lump, nipple discharge, breast pain, abnormal mammogram, abnormal US or breast enlargement Musc Musculoskeletal: Yes arthritis; No back problems, rheumatoid arthritis, gout or joint pain Cardio Cardiovascular: Yes high blood pressure; No murmur, pacemaker, heart disease, atrial fibrillation, heart attack, heart stent, palpitations, shortness of breat with exertion or chest pain Psych Psychiatric: Yes depression; No anxiety or hearing voices Resp Respiratory: No shortness of breath, Yes sleep apnea, No cough, No COPD, No asthma, No emphysema and No wheezing Gastro Gastrointestinal: No abdominal pain, No nausea or vomiting, No diarrhea, No constipation, No blood in stool, Yes acid reflux, No hemorrhoids, No ulcers, No gallbladder problem and No black,tarry stools [place] Hematologic: No blood thinners, No blood disorders, No bleeding, No anemia and No blood clots Neuro Neurologic: No system reviewed and no additional complaints, except as documented, No as per HPI, No abnormal gait, No abnormal hearing, No abnormal movements, No abnormal speech, No behavioral changes, No burning sensations, No confusion, No convulsions, No disequilibrium, No dizziness, No localized weakness, No frequent falls, No headache(s), No lack of coordination, No loss of vision, No memory loss, No numbness, No other visual disturbances, No radicular pain, No restless legs, No sensory deficit, No syncope, No tingling, No tremor(s), No weakness and No other Exam Const General: cooperative, healthy appearing, comfortable and no acute distress [facility] Head: normal to inspection Eyes General: appearance normal, both eyes and all related structures Neck Neck: normal visual inspection Chest Chest palpation & inspection: normal inspection of the chest Resp Effort & Inspection: normal respiratory effort Auscultation: clear to auscultation bilaterally Cardio Rate: regular rate Rhythm: regular rhythm GI Palpation: soft and no hepatosplenomegaly Auscultation: normal bowel sounds Musc Cervical Spine: normal cervical lordosis Neuro General: patient alert and patient awake Other: Some word search noted and hesitancy with some responses Extrem General: no calf tenderness Psych Appearance: grossly normal Assessment and Plan Assessment and Plan (1) Screening for malignant neoplasm of colon: ?Status:?Acute (2) GERD (gastroesophageal reflux disease): ?Status:?Acute (3) Epigastric pain: ?Status:?Acute ? ? ? Orders: Orders Colonoscopy Today Z12.11 - Encounter for screening for malignant neoplasm of colon ? EGD Today ? ? Gallbladder Today K21.9 - Gastro-esophageal reflux disease without esophagitis, R10.13 - Epigastric pain ? Plan The patient's source of retrosternal chest pain/epigastric pain still not determined.? She thinks she just recently had an echocardiogram with initial reports unremarkable but final report is pending.? She has not had any evaluation of her gallbladder.? She has not had an evaluation of her upper GI system. I propose for her a esophagogastroduodenoscopy with possible biopsy and screening colonoscopy with possible biopsy or polypectomy as indicated.? She is aware of the technique, benefit, risk, alternatives.? We will schedule and proceed at her discretion. Because her symptoms have not as yet been explained in the retrosternal epigastric component might suggest gallbladder disease I also propose proceeding with a gallbladder ultrasound. She has had an opportunity to ask and have questions answered.? She is comfortable with this.? We will schedule procedure at her discretion. I very much appreciate the kind opportunity of assisting with her surgical care. Copy: [facility] Blake Suresh M.D., F.A.C.S. I have re-examined the patient. There are no clinical changes since date of exam. Blake Suresh M.D., F.A.C.S.
[2021-11-10] MEDS: Lactated Ringers 1,000 ML 15 ML IV (09:09)
[2021-11-10 09:10] VITALS: BP 125/69; PULSE 54; RESP 18; TEMP 37.1; O2SAT 95; BMI 29.2
--- NOTE | 2021-11-10 09:30 | IMM_PTH ---
PATIENT: DC KUHN LOC: EN U#:[id number] AGE/SX: 65/F ROOM: RE11/10/[address]: Dr. Blake Suresh MD : 1955 BED: DIS: 11/10/2021 SPEC #: [id number] RECD: 11/10/21 12:40 STATUS: BECCA RESara #: [id number] SIDDHARTHA: 11/10/21 09:[address]: Blake Suresh DEPT: IMMUNOHISTOCHEMISTRY RECD BY: Lupe Dave ENTERED: 11/10/21 12:40 SP TYPE: IMMUNO OTHR DR: [facility] Tissues: B - Stomach, NOS Procedures: H Pylori (initial) PHYSICIAN & INSTITUTION [place] [id number] SPECIMEN INFORMATION: Tissue Source: B ? Antrum biopsy Clinical Info: Screening, GERD, epigastric pain Specimen Number: [id number] CPT code: 84015 METHODOLOGY: Deparaffinized sections of prefer/formalin-fixed tissue or PAP/DQ stained slides are incubated with monoclonal/polyclonal antibodies/oligonucleotide probes. Localization is made via biotin free immunoperoxidase method. Appropriate controls are performed and reacted as expected. Results on target cell population are indicated in the following table: RESULTS: ANTIBODY / CLONE RESULT Block B H Pylori (polyclonal) negative These tests were developed and their performance characteristics determined by [facility]. They may not have been cleared or approved by the U.S. Food and Drug Administration. The FDA has determined that such clearance or approval is not necessary. The above immunohistochemical/dualISH markers are ordered and reviewed by the Pathologist. INTERPRETATION: B. Antrum, biopsy: Negative for Helicobacter pylori organisms. AM:anatoliy 11/12/2021
--- NOTE | 2021-11-10 09:30 | COLBX_PTH ---
PATIENT: DC KUHN LOC: EN U#:[id number] AGE/SX: 65/F ROOM: RE11/10/[address]: Dr. Blake Suresh MD : 1955 BED: DIS: 11/10/2021 SPEC #: [id number] RECD: 11/10/21 11:06 STATUS: BECCA JULIANN #: [id number] SIDDHARTHA: 11/10/21 09:[address]: Blake Suresh DEPT: SURGICAL PATHOLOGY RECD BY: Darya Lamas ENTERED: 11/10/21 12:08 SP TYPE: COLON BX OTHR DR: [facility] Tissues: A - Duodenum, NOS B - Gastric mucous membrane C - Esophagus, NOS D - Esophagus, NOS Procedures: Surgery Specimen Level IV HEADER OPERATION: Colonoscopy, EGD ([facility]) PRE-OP DIAGNOSIS: Screening, GERD, epigastric pain TISSUE SUBMITTED: A ? Duodenum biopsy, B ? Antrum biopsy for histo and H. pylori, C ? Distal esophagus biopsy, D ? Mid esophagus biopsy MICROSCOPIC DIAGNOSIS A. Duodenum, biopsy: No pathologic change. B. Gastric antrum, biopsy: Minimal chronic inflammation. See comment. C. Distal esophagus, biopsy: Fragments of benign squamous mucosa. No evidence of goblet cell metaplasia. See comment. D. Mid esophagus, biopsy: No pathologic change. AM:anatoliy 11/11/2021 COMMENT B. The results of immunohistochemistry for Helicobacter pylori will be reported separately ([id number]). C. Alcian blue/PAS stain with matched control supports the above diagnosis. MICROSCOPIC DESCRIPTION Slides are reviewed. GROSS DESCRIPTION A - Received in fixative is one container labeled with the patient's name and designated duodenum biopsy. The specimen consists of one irregular fragment of light jha soft tissue that measures 0.4 x 0.3 x 0.1 cm. The specimen is totally submitted in one cassette. B - Received in fixative is one container labeled with the patient's name and designated antrum biopsy. The specimen consists of one irregular fragment of light jha soft tissue that measures 0.4 x 0.3 x 0.1 cm. The specimen is totally submitted in one cassette. C - Received in fixative is one container labeled with the patient's name and designated distal esophagus biopsy. The specimen consists of one irregular fragment of light jha soft tissue that measures 0.5 x 0.4 x 0.1 cm. The specimen is totally submitted in one cassette. D - Received in fixative is one container labeled with the patient's name and designated mid esophagus biopsy. The specimen consists of two irregular fragments of light jha soft tissue that in aggregate measure 0.4 x 0.2 x 0.1 cm. The specimen is totally submitted in one cassette. / SJ:rg 11/10/2021 TC:5 CPT: 41105 x4, 11047
[2021-11-10 10:15] LABS: Bedside Glucose 123 mg/dL (74-106)
--- NOTE | 2021-11-10 10:29 | OP.EGD_ITS ---
Patient Name: Brionna Lopez Procedure Date: 11/10/2021 9:53 AM Date of : 1955 Age: 65 Procedure: Upper GI endoscopy Indications: Epigastric abdominal pain Providers: Blake Suresh MD Referring MD: [facility] Medicines: See the Anesthesia note for documentation of the administered medications Complications: No immediate complications. Procedure: Pre-Anesthesia Assessment: - Prior to the procedure, a History and Physical was performed, and patient medications and allergies were reviewed. The patient's tolerance of previous anesthesia was also reviewed. The risks and benefits of the procedure and the sedation options and risks were discussed with the patient. All questions were answered, and informed consent was obtained. Prior Anticoagulants: The patient has taken no previous anticoagulant or antiplatelet agents. ASA Grade Assessment: II - A patient with mild systemic disease. After reviewing the risks and benefits, the patient was deemed in satisfactory condition to undergo the procedure. After obtaining informed consent, the endoscope was passed under direct vision. Throughout the procedure, the patient's blood pressure, pulse, and oxygen saturations were monitored continuously. The was introduced through the mouth, and advanced to the second part of duodenum. The upper GI endoscopy was accomplished without difficulty. The patient tolerated the procedure well. Scope In: 10:03:33 AM Scope Out: 10:09:56 AM Total Procedure Duration Time 0 hours 6 minutes 23 seconds Findings: The examined esophagus was normal. The middle third of the esophagus was normal. Biopsies were taken with a cold forceps for histology. The gastroesophageal junction was normal. Biopsies were taken with a cold forceps for histology. The entire examined stomach was normal. Biopsies were taken with a cold forceps for histology. The examined duodenum was normal. Biopsies were taken with a cold forceps for histology. Impression: - Normal esophagus. - Normal middle third of esophagus. Biopsied. - Normal gastroesophageal junction. Biopsied. - Normal stomach. Biopsied at antrum - Normal examined duodenum. Biopsied. Recommendation: - Discharge patient to home. - Resume previous diet. - Continue present medications. - Telephone my office for pathology results in 1 week. Procedure Code(s): --- Professional --- 18890, Esophagogastroduodenoscopy, flexible, transoral; with biopsy, single or multiple Diagnosis Code(s): --- Professional --- R10.13, Epigastric pain CPT copyright 2017 [employer]. All rights reserved. The codes documented in this report are preliminary and upon deposit clerk review may be revised to meet current compliance requirements. Blake Suresh MD 11/10/2021 10:29:11 AM This report has been signed electronically. Number of Addenda: 0 Note Initiated On: 11/10/2021 9:53 AM
--- NOTE | 2021-11-10 10:29 | OP.CCLET_ITS ---
11/10/2021 [facility] Re : Upper GI endoscopy procedure for Brionna [facility] This procedure was performed on Wednesday, November 10, 2021. My impressions and recommendations are as follows: Impressions : - Normal esophagus. - Normal middle third of esophagus. Biopsied. - Normal gastroesophageal junction. Biopsied. - Normal stomach. Biopsied at antrum - Normal examined duodenum. Biopsied. Recommendations : - Discharge patient to home. - Resume previous diet. - Continue present medications. - Telephone my office for pathology results in 1 week. My findings are described in the full procedure note, which is enclosed. If I can be of further assistance, please feel free to contact me at Doctor phone number(s): Work: . Sincerely, Blake Suresh MD 11/10/2021 10:29:11 AM This report has been signed electronically.
[2021-11-10 10:30] VITALS: BP 109/62; BP 125/69; PULSE 59; RESP 18; TEMP 37.3; O2SAT 96
--- NOTE | 2021-11-10 10:31 | OP.COLON_ITS ---
Patient Name: Brionna Lopez Procedure Date: 11/10/2021 10:10 AM Date of : 1955 Age: 65 Procedure: Colonoscopy Indications: Epigastric abdominal pain Providers: Blake Suresh MD Referring MD: [facility] Medicines: See the Anesthesia note for documentation of the administered medications Patient Profile: Last Colonoscopy: none. The patient's first colonoscopy is today. Complications: No immediate complications. Procedure: Pre-Anesthesia Assessment: - Prior to the procedure, a History and Physical was performed, and patient medications and allergies were reviewed. The patient's tolerance of previous anesthesia was also reviewed. The risks and benefits of the procedure and the sedation options and risks were discussed with the patient. All questions were answered, and informed consent was obtained. Prior Anticoagulants: The patient has taken no previous anticoagulant or antiplatelet agents. ASA Grade Assessment: II - A patient with mild systemic disease. After reviewing the risks and benefits, the patient was deemed in satisfactory condition to undergo the procedure. After I obtained informed consent, the scope was passed under direct vision. Throughout the procedure, the patient's blood pressure, pulse, and oxygen saturations were monitored continuously. The was introduced through the anus and advanced to the cecum, identified by appendiceal orifice and ileocecal valve. The colonoscopy was performed without difficulty. The patient tolerated the procedure well. The quality of the bowel preparation was fair. The ileocecal valve and the appendiceal orifice were photographed. Scope In: 10:11:27 AM Scope Withdrawal Time 0 hours 7 minutes 20 seconds Scope Out: 10:24:29 AM Total Procedure Duration Time 0 hours 13 minutes 2 seconds Findings: Hemorrhoids were found on perianal exam. The colon (entire examined portion) appeared normal. Impression: - Preparation of the colon was fair. - Hemorrhoids found on perianal exam. - The entire examined colon is normal. - No specimens collected. No findigs to correlate with abdominal pain. Recommendation: - Discharge patient to home. - Resume previous diet. - Continue present medications. - Repeat colonoscopy in 10 years for screening purposes. Procedure Code(s): --- Professional --- 62415, Colonoscopy, flexible; diagnostic, including collection of specimen(s) by brushing or washing, when performed (separate procedure) Diagnosis Code(s): --- Professional --- K64.9, Unspecified hemorrhoids R10.13, Epigastric pain CPT copyright 2017 [employer]. All rights reserved. The codes documented in this report are preliminary and upon sweep molder review may be revised to meet current compliance requirements. Blake Suresh MD 11/10/2021 10:31:24 AM This report has been signed electronically. Number of Addenda: 0 Note Initiated On: 11/10/2021 10:10 AM
--- NOTE | 2021-11-10 10:32 | OP.CCLET_ITS ---
11/10/2021 [facility] Re : Colonoscopy procedure for Brionna [facility] This procedure was performed on Wednesday, November 10, 2021. My impressions and recommendations are as follows: Impressions : - Preparation of the colon was fair. - Hemorrhoids found on perianal exam. - The entire examined colon is normal. - No specimens collected. No findigs to correlate with abdominal pain. Recommendations : - Discharge patient to home. - Resume previous diet. - Continue present medications. - Repeat colonoscopy in 10 years for screening purposes. My findings are described in the full procedure note, which is enclosed. If I can be of further assistance, please feel free to contact me at Doctor phone number(s): Work: . Sincerely, Blake Suresh MD 11/10/2021 10:31:24 AM This report has been signed electronically.
[2021-11-10 10:35] VITALS: BP 116/63; BP 125/69; PULSE 58; RESP 18; O2SAT 96
[2021-11-10 10:40] VITALS: BP 115/60; BP 125/69; PULSE 55; RESP 18; O2SAT 94
[2021-11-10 10:45] VITALS: BP 119/67; BP 125/69; PULSE 54; RESP 108; TEMP 36.8; O2SAT 94
[2021-11-10 11:06] VITALS: BP 125/69
== END 2021-11-10 11:10 | disposition home or self-care (01) ==
LOC: EN 08:39 → AC 08:40
PROVIDERS: Visit Provider Surgery
PROC: 0DJD8ZZ Inspection of Lower Intestinal Tract, Via Natural or Artificial Opening Endoscopic (ICD-10-PCS; CPT 45378; principal; 2021-11-10 09:25)
DX: Z12.11 Encounter for screening for malignant neoplasm of colon (principal); E11.9 Type 2 diabetes mellitus without complications; Z79.4 Long term (current) use of insulin; K21.9 Gastro-esophageal reflux disease without esophagitis; I10 Essential (primary) hypertension; Z86.73 Personal history of transient ischemic attack (TIA), and cerebral infarction without residual deficits; Z79.899 Other long term (current) drug therapy; F32.A Depression, unspecified; F41.9 Anxiety disorder, unspecified; E78.00 Pure hypercholesterolemia, unspecified; Z78.0 Asymptomatic menopausal state; K64.9 Unspecified hemorrhoids; K29.70 Gastritis, unspecified, without bleeding
CPT/HCPCS: G0121; 43239; 82962; 88305; 88342; J7120; J2405

== ENCOUNTER 2022-02-09 01:51 | Emergency (ER) | payer OTHER, SELFPAY ==
[2022-02-09 01:51] VITALS: BP 179/67; PULSE 61; RESP 18; TEMP 35.9; O2SAT 95; BMI 30.9
--- NOTE | 2022-02-09 02:15 | CT_ITS ---
STUDY: CT SOFT TISSUE NECK WITH CONTRAST REASON FOR EXAM: Female, 66 years old. neck mass RADIATION DOSAGE (If Supplied By Facility): CTDIvol = ( 16.98 ) mGy, DLP = ( 521.73 ) mGycm TECHNIQUE: The patient was scanned in a multi-detector CT scanner. High resolution transaxial imaging was performed following intravenous administration of IV 75mL Isovue-370. Sagittal and coronal images were reconstructed. Individualized dose optimization techniques were used for this CT. COMPARISON: None. FINDINGS: There is a large left submandibular lymph node measuring approximately 1.7 x 1.3 x 2 cm it has a nonspecific appearance, and may represent an infectious process. Follow-up is recommended to ensure neoplasm. Normal bilateral parotid glands. Normal bilateral internal affairs commander spaces. Normal bilateral parapharyngeal spaces. Normal bilateral carotid spaces. Normal bilateral sublingual and right submandibular gland and spaces. Normal visualized nasopharynx. Normal retropharyngeal space. Normal perivertebral space. Normal visualized bilateral faucial tonsils. The visualized tongue, tongue base and oropharynx are normal. The visualized cervical lymph nodes (levels I-) are within normal size limits, and maintain normal morphology. There is no demonstrated solid or cystic mass lesion. There is no abnormal contrast enhancement. Normal epiglottis, bilateral vallecula and hypopharynx. The pre-epiglottic and paraglottic adipose spaces are normal. Normal visualized bilateral piriform sinuses, aryepiglottic folds, vocal cords, and arytenoid-cricoid articulations. Normal subglottic trachea. Normal bilateral lobes of the thyroid gland. Normal visualized pulmonary apices. Normal visualized paranasal sinuses. Normal visualized cervical spine. CT/Soft Tissue Neck WITH Contrast IMPRESSION: There is a large left submandibular lymph node measuring approximately 1.7 x 1.3 x 2 cm it has a nonspecific appearance, and may represent an infectious process. Follow-up is recommended to ensure neoplasm. Electronically Signed: Garcia Bey MD at 3:41 EST ,
--- NOTE | 2022-02-09 02:16 | EDS_ITS ---
HPI History of Present Illness Chief Complaint: Sore Throat Narrative Narrative: 66-year-old female presenting with chief complaint of left-sided neck pain and swelling. She states that earlier today she noticed there was a red spot in her left nostril and she put some bacitracin cream on it and when she looked in the mirror she saw an area of redness on the left side of her neck. She now notes it is a little bit swollen. It is a little bit tender. She states that the inside of her neck and throat do not hurt. He is not having any trouble breathing or swallowing. It is tender when she touches it. She denies any injury. Patient states she feels otherwise well. She states that she lives at home alone and was concerned. [facility] Medical History Anxiety CPAP (continuous positive airway pressure) dependence Depression Diabetes Dietary restriction GERD (gastroesophageal reflux disease) High cholesterol Hypertension Post-menopausal Psoriasis Sleep apnea Thyroid disease TIA (transient ischemic attack) Home Medications Divalproex Sodium 750 mg PO QHS 08/01/19 [History Last Taken Unknown] aripiprazole 2 mg tablet 2 mg PO BID 08/01/19 [History Last Taken Unknown] atenolol 50 mg tablet 50 mg PO QHS 08/01/19 [History Last Taken Unknown] bupropion HCl (smoking deter) 150 mg tablet,12 hr sustained-release(smoking deterrent) 150 mg PO DAILY 08/01/19 [History Last Taken Unknown] cholecalciferol (vitamin D3) 50 mcg (2,000 unit) capsule 2,000 unit PO DAILY 08/01/19 [History Last Taken Unknown] fluticasone propionate 50 mcg/actuation nasal spray,suspension 1 spray NS DAILY PRN Congestion 08/01/19 [History Last Taken Unknown] insulin aspart U-100 100 unit/mL (3 mL) subcutaneous pen 8 unit SQ TIDCM 08/01/19 [History Last Taken Unknown] insulin glargine 100 unit/mL (3 mL) subcutaneous pen 23 units subcut QHS 08/01/19 [History Last Taken Unknown] levothyroxine 75 mcg tablet 100 mcg PO DAILY 08/01/19 [History Last Taken Unknown] metformin 1,000 mg tablet 1,000 mg PO DINNER 08/01/19 [History Last Taken Unknown] montelukast 10 mg tablet 10 mg PO QHS 08/01/19 [History Last Taken Unknown] pantoprazole 20 mg tablet,delayed release 40 mg PO DAILY 08/01/19 [History Last Taken Unknown] rosuvastatin 40 mg tablet 40 mg PO QHS 08/01/19 [History Last Taken Unknown] sertraline 100 mg tablet 150 mg PO DAILY 08/01/19 [History Last Taken Unknown] trazodone 100 mg tablet 100 mg PO QHS sleep 08/01/19 [History Last Taken Unknown] celecoxib 100 mg capsule 200 mg PO DAILY 09/28/21 [History Last Taken Unknown] empagliflozin 25 mg tablet 25 mg PO DAILY 09/28/21 [History Last Taken Unknown] ferrous sulfate 325 mg (65 mg iron) tablet 325 mg PO DAILY 09/28/21 [History Last Taken Unknown] hydrochlorothiazide 25 mg tablet 25 mg PO DAILY 09/28/21 [History Last Taken Unknown] multivitamin 1 tab PO DAILY 09/28/21 [History Last Taken Unknown] adalimumab 40 mg/0.8 mL subcutaneous pen kit (Humira Pen) 40 mg subcut .Q2WEEK Psoriasis 11/09/21 [History Last Taken Unknown] cephalexin 500 mg capsule 500 mg PO Q12 #14 caps 02/09/22 [Rx Last Taken Unknown] Allergy/AdvReac Type Severity Reaction Status Date / Time No Known Allergies Allergy Verified 02/09/22 01:55 Surgical History History of colonoscopy S/P cataract extraction Social History Smoking Status: Former smoker ROS ROS ED Constitutional Constitutional ED: Denies chills, fever(s) or sweats Eyes Eyes: Denies blurry vision or change in vision ENT ENT ED: Reports other Details: Left-sided neck swelling ; Denies ear pain Cardiovascular Cardiovascular: Denies chest pain, palpitations or racing heartbeat Respiratory/Chest Respiratory/Chest: Denies cough, dyspnea or sputum Gastrointestinal Gastrointestinal: Denies abdominal pain, constipation, diarrhea, nausea or vomiting Genitourinary Genitourinary ED: Denies dysuria, hematuria or urinary frequency Musculoskeletal Musculoskeletal: Denies arthralgias, myalgias or neck pain Integumentary Denies abscess, Abrasions or rash Neurologic Neurologic: Denies headache(s), paresthesias or weakness Psychiatric Psychiatric: Denies anxiety, depression, suicidal ideation or suicidal thoughts Endocrine Endocrinology: Denies polydipsia or polyuria EXAM Physical Exam Const Vital Signs: 02/09/22 01:51 Temperature 96.6 F L Temperature Source Temporal Pulse Rate 61 Respiratory Rate 18 Blood Pressure 179/67 H Blood Pressure Mean 104 Pulse Ox 95 Oxygen Delivery Method Room Air Positive well nourished General Appearance ED: NAD; Negative for pallor HEENT Reports normocephalic and moist mucous membranes Face and Sinus: normal facial exam, sinuses nontender and face symmetric; Negat shiela for facial erythema or facial edema Nose: external nose normal Mouth ED: Yes oral and palatal mucosa normal, Yes lips normal, Yes tongue normal and Yes salivary gland normal Mouth: oral and palatal mucosa normal, lips normal, tongue normal and salivary gland normal Throat: posterior oropharynx normal and tonsils normal Eyes PERRL Neck General: anterior neck swelling; Negative for tracheal deviation Chest Wall inspection of chest normal Resp normal respiratory effort and clear to auscultation bilaterally Auscultation: Negative for rales, rhonchi or wheezes Cardio regular rate and regular rhythm Extremity normal to inspection Neuro oriented x3, CN's II-XII intact bilaterally and no sensory deficits noted Sensorium / Orientation: alert Motor Exam: strength 5/5 throughout Psych mental status grossly normal Skin General Skin Exam: Negative for jaundice or pallor MDM MDM MDM Narrative Medical decision making narrative: Patient presenting with swelling in the left side of her neck. Appears to be an isolated lymph node on examination. It is mildly tender to palpation. There are some overlying erythema of the skin adjacent to this. Mildly increased warmth as well. The thyroid appears normal. I did basic lab work and her CBC a nd CMP are unremarkable. CT of the soft tissue of the neck?shows a 1.7x 1.3 x 2 cm it has a nonspecific appearance, and may represent an infectious process. Patient is not having trouble swallowing or breathing. She does not have a sore throat and her HEENT exam is otherwise normal. She is not having systemic signs or symptoms. Her lab work is normal. She [facility] Commended her that she follow-up to have this evaluated for malignancy. We will cover her with Keflex. She is amenable to this. Patient stable discharge. Impression: 1. Cervical adenitis 2. Cellulitis Lab Data Attestation: I reviewed the patient's lab results. Labs: Laboratory Results - last 24 hr 02/09/22 02/09/22 02:26 02:26 WBC 5.7 RBC 4.19 L Hgb 11.6 L Hct 35.0 L MCV 83.5 MCH 27.7 MCHC 33.1 RDW Std Deviation 42.3 RDW Coeff of Lacie 13.9 Plt Count 167 MPV 9.9 Immature Gran % (Auto) 0.700 Neut % (Auto) 55.2 Lymph % (Auto) 30.6 [place] % (Auto) 13.1 H Eos % (Auto) 0.2 Baso % (Auto) 0.2 Absolute Neuts (auto) 3.1 Absolute Lymphs (auto) 1.73 Nucleated RBC % 0 Sodium 137 Potassium 3.8 Chloride 102 Carbon Dioxide 29.0 Anion Gap 6 BUN 16 Creatinine 0.70 Estim Creat Clear Calc 51.11 Est GFR (MDRD) Af Amer 107 Est GFR (MDRD) Non-Af 89 BUN/Creatinine Ratio 22.8 H Glucose 127 H Calcium 8.8 Total Bilirubin 0.30 AST 13 L ALT 21 Alkaline Phosphatase 26 L Total Protein 7.3 Albumin 3.9 Globulin 3.4 Albumin/Globulin Ratio 1.1 Radiography Diagnostic Testing: Clinical Impression(s) from Imaging Studies Soft Tissue Neck CT 02/09/22 02:15 IMPRESSION: There is a large left submandibular lymph node measuring approximately 1.7 x 1.3 x 2 cm it has a nonspecific appearance, and may represent an infectious process. Follow-up is recommended to ensure neoplasm. Electronically Signed: Garcia Bey MD at 3:41 EST Reading Location ID and State: [facility] / [place] Tel , Service support , Discharge Plan Triage Chief Complaint: Sore Throat ED Provider: Shubham Rhodes Dx/Rx/DC Orders Instructions: ED ADENITIS Cervical Abx Tx Prescriptions: New cephalexin 500 mg capsule 500 mg PO Q12 Qty: 14 0RF No Action fluticasone propionate 9.9 ML spray,suspension 1 spray NS DAILY PRN (Reason: Congestion) atenolol 50 MG tablet 50 mg PO QHS aripiprazole 2 MG tablet 2 mg PO BID cholecalciferol (vitamin D3) 2,000 UNIT capsule 2,000 unit PO DAILY bupropion HCl (smoking deter) 150 MG tablet extended release 12 hr 150 mg PO DAILY Divalproex Sodium 250 MG Tablet.Dr 750 mg PO QHS sertraline 100 MG tablet 150 mg PO DAILY pantoprazole 20 MG tablet,delayed release (DR/EC) 40 mg PO DAILY levothyroxine 75 MCG tablet 100 mcg PO DAILY trazodone 100 MG tablet 100 mg PO QHS metformin 1,000 MG tablet 1,000 mg PO DINNER montelukast 10 MG tablet 10 mg PO QHS insulin aspart U-100 100 UNIT/ML insulin pen 8 unit SQ TIDCM rosuvastatin 40 MG tablet 40 mg PO QHS insulin glargine 100 UNITS/ML insulin pen 23 units subcut QHS multivitamin Tablet 1 tab PO DAILY ferrous sulfate 325 mg (65 mg iron) Tablet 325 mg PO DAILY hydrochlorothiazide 25 mg Tablet 25 mg PO DAILY celecoxib 100 mg Capsule 200 mg PO DAILY empagliflozin 25 mg Tablet 25 mg PO DAILY Humira Pen 40 mg/0.8 mL Pen Injector Kit 40 mg SUBCUT .Q2WEEK [facility] [Primary [facility] Provider[facility] - Disposition Disposition: Home, Self Care
[2022-02-09 02:31] LABS: Absolute Lymphocyte Count 1.73 X10^3/uL (0.83-4.51); Absolute Neutrophil Count 3.1 X10^3/uL (2.0-7.7); Basophil# 0.01 X10^3/uL; Basophil% 0.2 % (0-1); Eosinophil# 0.01 X10^3/uL; Eosinophils% 0.2 % (0-5); Hemoglobin 11.6 g/dL (12.0-15.0); Lymphocyte # 1.73 X10^3/ul (0.83-4.51); Lymphocyte % 30.6 % (19-41); Mean Corp Hgb Conc 33.1 g/dL (32-36); Mean Corpuscular Hgb 27.7 pg (27.0-32.0); Mean Corpuscular Volume 83.5 fL (81-99); Mean Platelet Vol. 9.9 fl (6.2-12.0); Monocyte# 0.74 X10^3/uL; Monocyte% 13.1 % (0-10); NRBC Flagged by Analyzer 0 % (0-5); Neutrophil # 3.12 X10^3/uL (2.7-7.7); Neutrophil % 55.2 % (47-70); Platelet Count 167 K/mm3 (150-450); RBC Distribution Width CV 13.9 % (11.6-14.6); RBC Distribution Width SD 42.3 fl (35.1-43.9); Red Blood Count 4.19 M/mm3 (4.2-5.4); White Blood Count 5.7 K/mm3 (4.4-11.0)
[2022-02-09 02:47] LABS: ALB/GLOB Ratio 1.1 RATIO (0.9-2.4); AST(SGOT) 13 U/L (15-37); Alanine Aminotransfer ALT/SGPT 21 U/L (13-56); Albumin, Serum 3.9 g/dL (3.2-5.0); Alkaline Phosphatase 26 U/L (45-117); Anion Gap 6 (5-15); BUN 16 mg/dL (7-18); BUN/Creat Ratio 22.8 RATIO (10-20); Calcium,Total 8.8 mg/dL (8.5-10.1); Chloride 102 mmol/L (98-107); EST Glomerular Filtration Rate 89 mL/min (>60); Est Glom Filt Rate - Afr Amer 107 mL/min (>60); Estimated Creatinine Clearance 51.11 ml/min; Globulin 3.4 g/dL (2.2-4.2); Glucose 127 mg/dL (74-106); Potassium 3.8 mmol/L (3.5-5.1); Protein, Total 7.3 g/dL (6.4-8.2); Sodium Level 137 mmol/L (136-145)
[2022-02-09] MEDS: Cephalexin 250 MG Capsule 500 MG PO (04:42)
== END 2022-02-09 04:51 | disposition home or self-care (01) ==
PROVIDERS: Emergency Provider Student in an Organized Health Care Education/Training Program; Visit Provider Student in an Organized Health Care Education/Training Program
DX: I88.9 Nonspecific lymphadenitis, unspecified (principal); L03.90 Cellulitis, unspecified; Z86.73 Personal history of transient ischemic attack (TIA), and cerebral infarction without residual deficits; Z87.891 Personal history of nicotine dependence
CPT/HCPCS: 70491; 80053; 85025; 99284; Q9967; A4216

== ENCOUNTER → 2022-04-20 | Outpatient (CLI) | payer OTHER, MEDICARE, SELFPAY ==
--- NOTE | 2022-04-20 09:07 | BD_ITS ---
STUDY: DUAL ENERGY X-RAY ABSORPTIOMETRY / DXA REASON FOR EXAM: Female, 66 years old. Z780 TECHNIQUE: Bone Mineral Density (BMD) measurements of lumbar spine and bilateral hips were obtained. COMPARISON: Comparison is made with prior study dated September 04, 2009. FINDINGS: Lumbar Spine (L1-L4): g/cm2 (0.985) / T-score (-0.6) / Z-score (1.4) Findings are suggestive of normal bone density with a low fracture risk. Left Femur Total: g/cm2 (0.860) / T-score (-0.7) / Z-score (0.7) Left Femoral Neck: g/cm2 (0.632) / T-score (-2.0) / Z-score (-0.3) Right Femur Total: g/cm2 (0.814) / T-score (-1.1) / Z-score (0.3) Right Femoral Neck: g/cm2 (0.691) / T-score (-1.4) / Z-score (0.2) The T-Scores on the most recent prior examination were: Lumbar Spine (L1-L4): There has been worsening of bone density since the previous examination. Left Femur Total: which represents a worsening of 14.8%. Right Femur Total: which represents a worsening of 15.4%. BD/Dexa Bone Density Study IMPRESSION: The patient is considered osteopenic as outlined below according to World [employer] Organization (WHO) criteria with a moderate fracture risk. There has been worsening of bone density since the previous examination. Reference Information: The T-score is the number of standard deviations above or below the standard which is normal for young adults at their peak bone mineral density. The World Health Organization (WHO) interprets the T-scores as follows: Above -1 Normal bone density Between -1 and -2.5 Osteopenia Equal to / or below -2.5 Osteoporosis As a practical clinical guideline, osteopenia may be graded as follows: Mild -1 through -1.5 Moderate -1.6 through -2.0 Severe -2.1 through -2.4 The Z-score is the number of standard deviations above or below age-matched controls. A Z-score of less than -1.5 would be considered abnormal. References: 1. NIH Osteoporosis and Related Bone Diseases www osteo.org 2. International Society for Clinical Densitometry www iscd.org 3. National Osteoporosis Foundation www nof.org Electronically Signed: Philip Moreira MD at 9:48 EST ,
== END | disposition home or self-care (01) ==
LOC: OPBD 08:55
DX: E28.319 Asymptomatic premature menopause (principal); Z78.0 Asymptomatic menopausal state
CPT/HCPCS: 77080

== ENCOUNTER → 2022-08-30 | Outpatient (CLI) | payer OTHER, SELFPAY ==
--- NOTE | 2022-08-30 14:56 | BI_ITS ---
MAMMOGRAPHY - BILATERAL SCREENING REASON FOR EXAM: Female, 66 years old. Routine annual screening examination. PERTINENT HISTORY: Mother with breast cancer. TECHNIQUE: Digital bilateral breast niranjan (3D mammographic acquisition) in the CC and MLO projections. 2-D mediolateral oblique (MLO) and craniocaudad (CC) views of both breasts were obtained. CAD: Full Field Digital Mammography with Computer Added Detection was performed. COMPARISON: Comparison is made with prior study dated July 27, 2021 and June 11, 2020. FINDINGS: Breast Composition: There are scattered areas of fibroglandular density. There are no dominant masses or suspicious calcifications. Stable benign-appearing axillary lymph nodes. No other significant abnormalities are identified. There has been no significant change since the prior study. BI/SCRN MAMM (CAD)W/NIRANJAN BILAT IMPRESSION: Stable bilateral screening mammogram. Yearly follow-up mammogram recommended. (A) ASSESSMENT CATEGORY: BIRADS Category 2: Benign. A letter regarding these results will be sent to the patient by the facility within 30 days. Approximately 10% of breast cancers are not detected by mammography. A normal mammogram should not delay biopsy of a clinically suspicious abnormality. [id number] Electronically Signed: Philip Moreira MD at 8:33 EDT ,
== END | disposition home or self-care (01) ==
LOC: OPBI 14:50
DX: Z12.31 Encounter for screening mammogram for malignant neoplasm of breast (principal); Z80.3 Family history of malignant neoplasm of breast
CPT/HCPCS: 77063; 77067

== ENCOUNTER 2022-10-27 21:57 | Emergency (ER) | payer OTHER, SELFPAY ==
[2022-10-27 21:58] VITALS: BP 159/66; PULSE 56; RESP 16; TEMP 36.7; O2SAT 95; BMI 60.8
[2022-10-27 22:38] LABS: Bedside Glucose 170 mg/dL (74-106)
--- NOTE | 2022-10-27 23:12 | EX.ED.DYSGE1 ---
HPI History of Present Illness Chief Complaint: Hyperglycemia Detail of Chief Complaint: Confusion and hyperglycemia Informant: patient and family Narrative Narrative: Patient presents to the emergency department with complaint of confusion. Patient history comes from the patient as well as her sister. Apparently today patient had forgotten about some [employer] project that she and the sister were working on. Is not unusual for patient to have poor memory or forgetfulness. Patient had a TIA earlier this year. Patient feels fine otherwise. She denies weakness. She denies vision change or difficulty with speech. Patient had a blood sugar checked today and it was 361 which is unusually high for her. Medications are currently made by [place] as she had some episodes of hypoglycemia so they have been adjusting her medications. [facility] Medical History Anxiety CPAP (continuous positive airway pressure) dependence Depression Diabetes Dietary restriction GERD (gastroesophageal reflux disease) High cholesterol Hypertension Post-menopausal Psoriasis Sleep apnea Thyroid disease TIA (transient ischemic attack) Home Medications Divalproex Sodium 750 mg PO QHS 08/01/19 [History Last Taken Unknown] aripiprazole 2 mg tablet 2 mg PO BID 08/01/19 [History Last Taken Unknown] atenolol 50 mg tablet 50 mg PO QHS 08/01/19 [History Last Taken Unknown] bupropion HCl (smoking deter) 150 mg tablet,12 hr sustained-release(smoking deterrent) 150 mg PO DAILY 08/01/19 [History Last Taken Unknown] cholecalciferol (vitamin D3) 50 mcg (2,000 unit) capsule 2,000 unit PO DAILY 08/01/19 [History Last Taken Unknown] fluticasone propionate 50 mcg/actuation nasal spray,suspension 1 spray NS DAILY PRN Congestion 08/01/19 [History Last Taken Unknown] insulin aspart U-100 100 unit/mL (3 mL) subcutaneous pen 8 unit SQ TIDCM 08/01/19 [History Last Taken Unknown] insulin glargine 100 unit/mL (3 mL) subcutaneous pen 23 units subcut QHS 08/01/19 [History Last Taken Unknown] levothyroxine 75 mcg tablet 100 mcg PO DAILY 08/01/19 [History Last Taken Unknown] metformin 1,000 mg tablet 1,000 mg PO DINNER 08/01/19 [History Last Taken Unknown] montelukast 10 mg tablet 10 mg PO QHS 08/01/19 [History Last Taken Unknown] pantoprazole 20 mg tablet,delayed release 40 mg PO DAILY 08/01/19 [History Last Taken Unknown] rosuvastatin 40 mg tablet 40 mg PO QHS 08/01/19 [History Last Taken Unknown] sertraline 100 mg tablet 150 mg PO DAILY 08/01/19 [History Last Taken Unknown] trazodone 100 mg tablet 100 mg PO QHS sleep 08/01/19 [History Last Taken Unknown] celecoxib 100 mg capsule 200 mg PO DAILY 09/28/21 [History Last Taken Unknown] empagliflozin 25 mg tablet 25 mg PO DAILY 09/28/21 [History Last Taken Unknown] ferrous sulfate 325 mg (65 mg iron) tablet 325 mg PO DAILY 09/28/21 [History Last Taken Unknown] hydrochlorothiazide 25 mg tablet 25 mg PO DAILY 09/28/21 [History Last Taken Unknown] multivitamin 1 tab PO DAILY 09/28/21 [History Last Taken Unknown] adalimumab 40 mg/0.8 mL subcutaneous pen kit (Humira Pen) 40 mg subcut .Q2WEEK Psoriasis 11/09/21 [History Last Taken Unknown] cephalexin 500 mg capsule 500 mg PO Q12 #14 caps 02/09/22 [Rx Last Taken Unknown] Allergy/AdvReac Type Severity Reaction Status Date / Time amlodipine Allergy PT UNABLE Verified 10/27/22 22:05 TO RESPOND-NEEDS F/U atorvastatin [From Lipitor] Allergy PT UNABLE Verified 10/27/22 22:05 TO RESPOND-NEEDS F/U ezetimibe [From Zetia] Allergy PT UNABLE Verified 10/27/22 22:05 TO RESPOND-NEEDS F/U lisinopril Allergy PT UNABLE Verified 10/27/22 22:05 TO RESPOND-NEEDS F/U simvastatin [From Zocor] Allergy PT UNABLE Verified 10/27/22 22:05 TO RESPOND-NEEDS F/U LOSARTAN Allergy PT UNABLE Uncoded 10/27/22 22:05 TO RESPOND-NEEDS F/U Surgical History History of colonoscopy S/P cataract extraction Social History Smoking Status: Former smoker ROS ROS ED ROS Narrative Hyperglycemia Review of Systems ROS Unobtainable: other Constitutional Constitutional ED: Reports lethargy; Denies chills, fever(s), sweats or weight loss Eyes Eyes: Denies blurry vision, change in vision or diplopia ENT ENT ED: Denies rhinorrhea or sore throat Cardiovascular Cardiovascular: Denies chest pain, orthopnea or racing heartbeat Respiratory/Chest Respiratory/Chest: Denies cough, dyspnea, dyspnea on exertion, orthopnea or sputum Gastrointestinal Gastrointestinal: Denies abdominal pain, diarrhea, nausea or vomiting Genitourinary Genitourinary ED: Denies dysuria, hematuria or urinary frequency Musculoskeletal Musculoskeletal: Denies arthralgias, back pain, myalgias or neck pain Integumentary Denies abscess, Abrasions or rash Neurologic Neurologic: Reports other Details: Confusion ; Denies headache(s) or weakness Psychiatric Psychiatric: Denies anxiety, depression or suicidal thoughts Endocrine Endocrinology: Denies polydipsia, polyphagia or polyuria Hematologic/Lymphatic Hematologic/Lymphatic: Denies easy bleeding, easy bruising or lymphadenopathy Allergic/Immunologic Allergic/Immunologic ED: Denies mouth swelling, tongue swelling or urticaria EXAM Physical Exam Const Vital Signs: 10/27/22 21:58 10/28/22 00:46 10/28/22 00:52 Temperature 98.1 F Temperature Source Temporal Pulse Rate 56 L 50 L Respiratory Rate 16 12 Respiratory Effort Normal Non-Labored Respiratory Pattern Normal Blood Pressure 159/66 H 136/70 H Blood Pressure Mean 97 92 Pulse Ox 95 97 Oxygen Delivery Method Room Air Room Air 10/28/22 01:17 Temperature Temperature Source Pulse Rate 55 L Respiratory Rate 12 Respiratory Effort Respiratory Pattern Blood Pressure 136/70 H Blood Pressure Mean Pulse Ox 97 Oxygen Delivery Method Positive well nourished and well developed General Appearance ED: well developed and NAD HEENT Reports TM's clear and moist mucous membranes normocephalic and atraumatic; Negative for trauma or tenderness Tympanic Membrane ED: Yes TM's clear Eyes PERRL and EOMs intact bilaterally General Eye ED: Negative for pale conjunctiva or scleral icterus Neck no lymphadenopathy, supple and no JVD General: Negative for tenderness Chest Wall inspection of chest normal and palpation of chest normal Chest: Negative for tenderness Resp normal respiratory effort and clear to auscultation bilaterally Effort and Inspection: Negative for respiratory distress or pain with movement Auscultation: Negative for rhonchi, wheezes or diminished lung sounds Cardio regular rate, regular rhythm, S1 normal heart sound, S2 normal heart sound and no murmurs Peripheral Pulses: pulses 2+ throughout GI normal to inspection, nondistended, normoactive bowel sounds, soft to palpation, non-tender, non-distended and no masses Back/Spine no CVA tenderness and no thoracic nor lumbar tenderness Extremity normal to inspection General Extremety ED: Negative for edema General Extremity: Negative for edema Neuro oriented x3, CN's II-XII intact bilaterally, no sensory deficits noted and gait normal Sensorium / Orientation: awake, alert, oriented to person, oriented to place and oriented to time Motor Exam: strength 5/5 throughout and strength abnormal Psych mental status grossly normal Skin no rashes or lesions noted and no wounds MDM MDM MDM Narrative Medical decision making narrative: Patient presents with concern for elevated blood glucose and then some confusion and memory loss. Patient has history of memory loss and 3 years ago apparently had a TIA that similarly involved some confusion. Patient does take daily aspirin. Patient denies any focal deficits at this time. No clinical evidence of stroke on exam. IV line established. CT scan of the brain without contrast obtained was essentially unremarkable. CBC with differential showed a white count of 8.4 with hemoglobin of 12.8 and platelet count of 228. Chemistries unremarkable other than a slight depressed potassium of 3.2 for which I did give her 40 mEq of potassium chloride p.o. Glucose was 113. Urinalysis was normal. At this point I feel patient can be discharged to home. She clinically looks well. [facility] 7 [facility]. Advised to return if condition should worsen anyway. Lab Data Labs: Laboratory Results - last 24 hr 10/27/22 10/27/22 10/27/22 22:18 23:32 23:45 WBC 8.4 RBC 4.47 Hgb 12.8 Hct 38.4 MCV 85.9 MCH 28.6 MCHC 33.3 RDW Std Deviation 45.2 H RDW Coeff of Lacie 14.6 Plt Count 228 MPV 10.4 Immature Gran % (Auto) 1.300 H Neut % (Auto) 59.9 Lymph % (Auto) 28.0 Norman % (Auto) 10.4 H Eos % (Auto) 0.2 Baso % (Auto) 0.2 Absolute Neuts (auto) 5.0 Absolute Lymphs (auto) 2.34 Nucleated RBC % 0 Sodium 140 Potassium 3.2 L Chloride 102 Carbon Dioxide 32.0 Anion Gap 6 BUN 26 H Creatinine 0.77 Estim Creat Clear Calc 51.11 Est GFR (MDRD) Af Amer 96 Est GFR (MDRD) Non-Af 79 BUN/Creatinine Ratio 33.8 H Glucose 113 H Calcium 9.1 Urine Color Yellow Urine Clarity Clear Urine pH 5.0 Ur Specific [place] 1.020 Urine Protein 15 H Urine Glucose (UA) 1000 H Urine Ketones 5 H Urine Occult Blood Negative Urine Nitrite Negative Urine Bilirubin Negative Urine Urobilinogen Normal Ur Leukocyte Esterase Negative Urine RBC 0 SEEN Urine WBC 0 SEEN Ur Squamous Epith Cells 0 SEEN Urine Bacteria 1+ Urine Mucus 0 SEEN POC Glucose 170 H Radiography Diagnostic Testing: Clinical Impression(s) from Imaging Studies Brain CT 10/28/22 23:12 IMPRESSION: Mild atrophy no visualized acute hemorrhage infarct or edema. Electronically Signed: Maeve Sykes MD at 0:48 EDT Reading Location ID and State: [facility] [place] / [place] Tel , Service support , Discharge Plan Triage Chief Complaint: Hyperglycemia ED Provider: Suyapa Skinner Dx/Rx/DC Orders Clinical Impression: Bradycardia, Confusion, Acute hypokalemia Instructions: Hypokalemia Dc, ED ALOC, ED Confusion Prescriptions: No Action fluticasone propionate 9.9 ML spray,suspension 1 spray NS DAILY PRN (Reason: Congestion) atenolol 50 MG tablet 50 mg PO QHS aripiprazole 2 MG tablet 2 mg PO BID cholecalciferol (vitamin D3) 2,000 UNIT capsule 2,000 unit PO DAILY bupropion HCl (smoking deter) 150 MG tablet extended release 12 hr 150 mg PO DAILY Divalproex Sodium 250 MG Tablet.Dr 750 mg PO QHS sertraline 100 MG tablet 150 mg PO DAILY pantoprazole 20 MG tablet,delayed release (DR/EC) 40 mg PO DAILY levothyroxine 75 MCG tablet 100 mcg PO DAILY trazodone 100 MG tablet 100 mg PO QHS metformin 1,000 MG tablet 1,000 mg PO DINNER montelukast 10 MG tablet 10 mg PO QHS insulin aspart U-100 100 UNIT/ML insulin pen 8 unit SQ TIDCM rosuvastatin 40 MG tablet 40 mg PO QHS insulin glargine 100 UNITS/ML insulin pen 23 units subcut QHS multivitamin Tablet 1 tab PO DAILY ferrous sulfate 325 mg (65 mg iron) Tablet 325 mg PO DAILY hydrochlorothiazide 25 mg Tablet 25 mg PO DAILY celecoxib 100 mg Capsule 200 mg PO DAILY empagliflozin 25 mg Tablet 25 mg PO DAILY Humira Pen 40 mg/0.8 mL Pen Injector Kit 40 mg SUBCUT .Q2WEEK cephalexin 500 mg capsule 500 mg PO Q12 Qty: 14 0RF [facility] [facility] Provider[facility] - 3-5 Days Disposition Disposition: Home, Self Care Discharge Date/Time: 10/28/22 01:34
[2022-10-27 23:40] LABS: Mucous, Urine 0 SEEN /hpf (<or=2+); Red Blood Cells-Urine 0 SEEN /hpf (0-5); Squamous Epithelial Cells - UA 0 SEEN /hpf (5-10); White Blood Cells 0 SEEN /hpf (0-5)
[2022-10-27 23:41] LABS: Glucose, Dipstick 1000 mg/dl (Normal); Ketone-Dipstick 5 mg/dl (Negative); Leukocyte Esterase-Dipstick Negative /ul (Negative); Nitrite-Dipstick Negative (Negative); Occult Blood-Urine Negative /ul (Negative); Protein-Dipstick 15 mg/dl (Negative); Urine Bilirubin Dipstick Negative (Negative); Urine Urobilinogen Normal (Normal)
[2022-10-27 23:42] LABS: Color, Urine Yellow (Yellow); Urine Clarity Clear (Clear)
[2022-10-27 23:49] LABS: Bacteria 1+ /hpf (None Seen)
[2022-10-28 00:06] LABS: Anion Gap 6 (5-15); BUN 26 mg/dL (7-18); BUN/Creat Ratio 33.8 RATIO (10-20); Calcium,Total 9.1 mg/dL (8.5-10.1); Chloride 102 mmol/L (98-107); Creatinine, Serum 0.77 mg/dL (0.55-1.02); EST Glomerular Filtration Rate 79 mL/min (>60); Est Glom Filt Rate - Afr Amer 96 mL/min (>60); Estimated Creatinine Clearance 51.11 ml/min; Glucose 113 mg/dL (74-106); Potassium 3.2 mmol/L (3.5-5.1); Sodium Level 140 mmol/L (136-145)
[2022-10-28 00:12] LABS: Absolute Lymphocyte Count 2.34 X10^3/uL (0.83-4.51); Basophil# 0.02 X10^3/uL; Basophil% 0.2 % (0-1); Eosinophil# 0.02 X10^3/uL; Eosinophils% 0.2 % (0-5); Hematocrit 38.4 % (37-47); Hemoglobin 12.8 g/dL (12.0-15.0); Lymphocyte # 2.34 X10^3/ul (0.83-4.51); Mean Corp Hgb Conc 33.3 g/dL (32-36); Mean Corpuscular Hgb 28.6 pg (27.0-32.0); Mean Corpuscular Volume 85.9 fL (81-99); Mean Platelet Vol. 10.4 fl (6.2-12.0); Monocyte# 0.87 X10^3/uL; Monocyte% 10.4 % (0-10); NRBC Flagged by Analyzer 0 % (0-5); Neutrophil # 4.99 X10^3/uL (2.7-7.7); Neutrophil % 59.9 % (47-70); Platelet Count 228 K/mm3 (150-450); RBC Distribution Width CV 14.6 % (11.6-14.6); RBC Distribution Width SD 45.2 fl (35.1-43.9); Red Blood Count 4.47 M/mm3 (4.2-5.4); White Blood Count 8.4 K/mm3 (4.4-11.0)
[2022-10-28] MEDS: 0.9% Normal Saline 1,000 ML 150 ML IV (00:41)
[2022-10-28 00:52] VITALS: BP 136/70; PULSE 50; RESP 12; O2SAT 97
[2022-10-28 01:17] VITALS: BP 136/70; PULSE 55; RESP 12; O2SAT 97
[2022-10-28] MEDS: Potassium Chloride Oral Tablet 20 MEQ 40 MEQ PO (01:26)
--- NOTE | 2022-10-28 23:12 | CT_ITS ---
STUDY: CT BRAIN WITHOUT CONTRAST REASON FOR EXAM: Female, 66 years old. Confusion RADIATION DOSAGE (If Supplied By Facility): CTDIvol = ( 44.99 ) mGy, DLP = ( 829.85 ) mGycm TECHNIQUE: Transaxial CT imaging of the brain was performed without administration of intravenous contrast material. Individualized dose optimization techniques were used for this CT. COMPARISON: August 01, 2019 CT scan head FINDINGS: Normal soft tissue structures. Normal calvarium. There is mild cerebral atrophy with widening of the extra-axial spaces and ventricular dilatation. There are areas of decreased attenuation within the white matter tracts of the supratentorial brain, consistent with microvascular disease changes. Normal basal ganglia and thalami. Normal brainstem. There is mild cerebellar atrophy. There is no intracranial hemorrhage. There are no findings of an acute ischemic infarction. Normal visualized paranasal sinuses. CT/Brain/Head without Contrast IMPRESSION: Mild atrophy no visualized acute hemorrhage infarct or edema. Electronically Signed: Mavee Sykes MD at 0:48 EDT ,
== END 2022-10-28 01:34 | disposition home or self-care (01) ==
PROVIDERS: Emergency Provider Emergency Medicine; Visit Provider Emergency Medicine
DX: R41.0 Disorientation, unspecified (principal); E11.65 Type 2 diabetes mellitus with hyperglycemia; Z79.4 Long term (current) use of insulin; E78.00 Pure hypercholesterolemia, unspecified; I10 Essential (primary) hypertension; Z87.891 Personal history of nicotine dependence; R00.1 Bradycardia, unspecified; E87.6 Hypokalemia; Z86.73 Personal history of transient ischemic attack (TIA), and cerebral infarction without residual deficits; Z99.89 Dependence on other enabling machines and devices; F32.A Depression, unspecified; Z79.899 Other long term (current) drug therapy; Z79.84 Long term (current) use of oral hypoglycemic drugs; K21.9 Gastro-esophageal reflux disease without esophagitis; F41.9 Anxiety disorder, unspecified; E07.9 Disorder of thyroid, unspecified; L40.9 Psoriasis, unspecified; Z98.49 Cataract extraction status, unspecified eye; Z79.82 Long term (current) use of aspirin
CPT/HCPCS: 70450; 80048; 81001; 82962; 85025; 96360; 99285; J7030; A4216

== ENCOUNTER 2023-03-01 03:25 | Emergency (ER) | payer MEDICARE, OTHER, SELFPAY ==
[2023-03-01 03:28] VITALS: BP 133/74; PULSE 77; RESP 18; TEMP 36.4; O2SAT 95; BMI 25.0
[2023-03-01 03:47] LABS: Bedside Glucose 115 mg/dL (74-106)
--- NOTE | 2023-03-01 04:10 | EX.ED.DYSGE1 ---
HPI History of Present Illness Chief Complaint: Hypoglycemia Narrative Narrative: History and physical is mildly limited to patient's cognitive disability from a stroke that she suffered over 10 years ago. She presents with her sister because of low blood sugar that she experienced tonight. She has a constant glucose monitor, and her blood sugar got as low as 57 this evening. She states that she has been eating dinner, and will eat sugary foods throughout the night if she feels shaky. She was alerted that her blood sugar was low, so she drank Coca-Cola. She has been on metformin in the past, and they state that she recently started Ozempic in December, approximately 2 months ago and perhaps gets that shot every 2 weeks. She does not see an daub color mixer. [facility] be established with someone down here. She became concerned because of the low dip in her blood sugar this evening. [facility] Medical History Anxiety CPAP (continuous positive airway pressure) dependence Depression Diabetes Dietary restriction GERD (gastroesophageal reflux disease) High cholesterol Hypertension Post-menopausal Psoriasis Sleep apnea Thyroid disease TIA (transient ischemic attack) Home Medications aripiprazole 2 mg tablet 2.5 mg PO BID 08/01/19 [History Last Taken Unknown] cholecalciferol (vitamin D3) 50 mcg (2,000 unit) capsule 2,000 unit PO DAILY 08/01/19 [History Last Taken Unknown] fluticasone propionate 50 mcg/actuation nasal spray,suspension 1 spray NS DAILY PRN Congestion 08/01/19 [History Last Taken Unknown] levothyroxine 75 mcg tablet 100 mcg PO DAILY 08/01/19 [History Last Taken Unknown] metformin 1,000 mg tablet 1,000 mg PO DINNER 08/01/19 [History Last Taken Unknown] montelukast 10 mg tablet 10 mg PO QHS 08/01/19 [History Last Taken Unknown] pantoprazole 20 mg tablet,delayed release 20 mg PO Q12H 08/01/19 [History Last Taken Unknown] rosuvastatin 40 mg tablet 40 mg PO QHS 08/01/19 [History Last Taken Unknown] trazodone 100 mg tablet 100 mg PO QHS sleep 08/01/19 [History Last Taken Unknown] empagliflozin 25 mg tablet 25 mg PO DAILY 09/28/21 [History Last Taken Unknown] ferrous sulfate 325 mg (65 mg iron) tablet 325 mg PO DAILY 09/28/21 [History Last Taken Unknown] multivitamin 1 tab PO DAILY 09/28/21 [History Last Taken Unknown] acetaminophen 325 mg tablet 650 mg PO Q6H PRN pain 01/03/23 [History Last Taken Unknown] adalimumab 40 mg/0.4 mL subcutaneous pen kit (Humira(CF) Pen) 40 mg subcut Q2W 01/03/23 [History Last Taken Unknown] aspirin 81 mg tablet,delayed release 81 mg PO DAILY 01/03/23 [History Last Taken Unknown] calcipotriene 0.005 % topical cream 1 applic topical BID 01/03/23 [History Last Taken Unknown] dextrose 6 gram/15 mL oral gel 10 g PO Q15M PRN hypoglycemia 01/03/23 [History Last Taken Unknown] diclofenac sodium 1 % topical gel 2 g topical ONCE 01/03/23 [History Last Taken Unknown] divalproex 250 mg tablet,extended release 24 hr 750 mg PO DAILY 01/03/23 [History Last Taken Unknown] naltrexone 50 mg tablet 50 mg PO DAILY 01/03/23 [History Last Taken Unknown] semaglutide 0.25 mg or 0.5 mg (2 mg/3 mL) subcutaneous pen injector (Ozempic) 0.25 mg (0.368 mL) subcut QWEEK #3 mL 01/03/23 [Rx Last Taken Unknown] sertraline 100 mg tablet 200 mg PO DAILY 01/03/23 [History Last Taken Unknown] urea 40 % topical cream 1 applic topical DAILY 01/03/23 [History Last Taken Unknown] clobetasol 0.05 % topical ointment 1 applic topical BID 03/01/23 [History Last Taken Unknown] hydrochlorothiazide 25 mg tablet 25 mg PO DAILY 03/01/23 [History Last Taken Unknown] Allergy/AdvReac Type Severity Reaction Status Date / Time amlodipine Allergy PT UNABLE Verified 03/01/23 03:26 TO RESPOND-NEEDS F/U atorvastatin [From Lipitor] Allergy PT UNABLE Verified 03/01/23 03:26 TO RESPOND-NEEDS F/U ezetimibe [From Zetia] Allergy PT UNABLE Verified 03/01/23 03:26 TO RESPOND-NEEDS F/U lisinopril Allergy PT UNABLE Verified 03/01/23 03:26 TO RESPOND-NEEDS F/U simvastatin [From Zocor] Allergy PT UNABLE Verified 03/01/23 03:26 TO RESPOND-NEEDS F/U LOSARTAN Allergy PT UNABLE Uncoded 10/27/22 22:05 TO RESPOND-NEEDS F/U Surgical History History of colonoscopy S/P cataract extraction Social History Smoking Status: Former smoker alcohol intake: current alcohol intake frequency: holidays/special occasions only Alcohol type: wine substance use type: does not use ROS ROS ED ROS Narrative Constitutional: No fever, no chills. Blood sugar this evening. HEENT: No sore throat. No neck pain. No loss of vision. No rhinorrhea. Cardiovascular: No chest pain. No palpitations. No pedal edema. Respiratory: No cough, no shortness of breath. Abdominal: No abdominal pain. No nausea. No vomiting. Genitourinary: No dysuria. No hematuria. Musculoskeletal: No myalgias. No arthralgias. Neurologic: No headaches. No dizziness. No lightheadedness. Skin: No rash. No change in color. Psychiatric: No depression. No anxiety. EXAM Physical Exam Narrative Exam Narrative: Afebrile. Vital signs noted. HEENT: Normocephalic. Atraumatic. PERRL, EOMI. Neck soft and supple. No point tenderness or step off. Cardiovascular: Regular rate and rhythm. No murmurs, rubs, or gallops appreciated. Respiratory: No tachypnea. Lungs clear to auscultation bilaterally. Gastrointestinal: Abdomen soft, nontender, with normoactive bowel sounds. No rebound or guarding. Neurological: Awake. Alert. Nonfocal, nonlateralizing. Baseline according to sister. Skin: No rash. Normal color. No pallor. Musculoskeletal: No pedal edema. Full range of motion extremities. Const Vital Signs: 03/01/23 03:28 03/01/23 03:38 Temperature 97.5 F L Temperature Source Oral Pulse Rate 77 Respiratory Rate 18 Respiratory Effort Normal Respiratory Pattern Normal Blood Pressure 133/74 H Blood Pressure Mean 93 Pulse Ox 95 Oxygen Delivery Method Room Air MDM MDM MDM Narrative Medical decision making narrative: Patient showed me on her telephone application that her blood sugar was low at 57, but then started to respond. [id number] glucose was obtained here and is 115. At this point in time, no feel that she requires further testing. She was told about eating habits and perhaps eating more carbohydrates. I will refer her to endocrinology here as well. I feel she can be discharged to follow-up with her primary care provider as well in the meantime. Return instructions to the emergency department were reviewed. Disposition is discharged home in stable condition. They will call the daub color mixer/nurse practitioner later today and make them aware of her transient dip in blood glucose to 57. I feel she can be discharged to follow-up. They were reassured. Disposition is discharged in stable condition. History & Record Review Discussion w/independent historian: Patient and Family Additional record(s) reviewed:: Prior ED visit Lab Data Attestation: I reviewed the patient's lab results. Labs: Laboratory Results - last 24 hr 03/01/23 03:29 POC Glucose 115 H Discharge Plan Triage Chief Complaint: Hypoglycemia ED Provider: Anatoliy Man Dx/Rx/DC Orders Clinical Impression: Diabetes, Hypoglycemia Instructions: ED Hypoglycemia Oral Diabetic Med, ED Diet: Diabetes Prescriptions: No Action acetaminophen 325 mg tablet 650 mg PO Q6H PRN (Reason: pain) naltrexone 50 mg tablet 50 mg PO DAILY aspirin 81 mg tablet,delayed release (DR/EC) 81 mg PO DAILY calcipotriene 0.005 % cream 1 applic topical BID divalproex 250 mg tablet extended release 24 hr 750 mg PO DAILY diclofenac sodium 1 % gel 2 g topical ONCE Rx Instructions: apply to single elbow, wrist or hand; for hand includes palm/fingers/back of hand dextrose 6 gram/15 mL gel 10 g PO Q15M PRN (Reason: hypoglycemia) Rx Instructions: until symptoms of low blood sugar are controlled urea 40 % cream 1 applic topical DAILY Humira(CF) Pen 40 mg/0.4 mL pen injector kit 40 mg subcut Q2W Ozempic 0.25 mg or 0.5 mg (2 mg/3 mL) pen injector 0.25 mg subcut QWEEK Qty: 3 5RF fluticasone propionate 9.9 ML spray,suspension 1 spray NS DAILY PRN (Reason: Congestion) aripiprazole 2 MG tablet 2.5 mg PO BID cholecalciferol (vitamin D3) 2,000 UNIT capsule 2,000 unit PO DAILY pantoprazole 20 MG tablet,delayed release (DR/EC) 20 mg PO Q12H levothyroxine 75 MCG tablet 100 mcg PO DAILY trazodone 100 MG tablet 100 mg PO QHS metformin 1,000 MG tablet 1,000 mg PO DINNER montelukast 10 MG tablet 10 mg PO QHS rosuvastatin 40 MG tablet 40 mg PO QHS sertraline 100 mg tablet 200 mg PO DAILY multivitamin Tablet 1 tab PO DAILY ferrous sulfate 325 mg (65 mg iron) Tablet 325 mg PO DAILY empagliflozin 25 mg Tablet 25 mg PO DAILY clobetasol 0.05 % ointment 1 applic TOPICAL BID hydrochlorothiazide 25 mg tablet 25 mg PO DAILY Primary Care Provider: [facility] ,Out of Referrals: Lv Rivera MD [Med Staff - Courtesy Staff] - As soon as possible [facility] Doctor,Out of [Primary Care Provider] - Activity Restrictions/Additional Instructions: Call Shayy Euceda/Dr. Montejo today and let them know about your dip in blood sugar overnight. Disposition Disposition: Home, Self Care
[2023-03-01 04:31] VITALS: BP 112/68; PULSE 76; RESP 16; O2SAT 95
--- OUTSIDE RECORDS SUMMARY | 2023-03-01 04:52 | XMS RPT_ITS | CCD ---
Author Name Unknown Address [address] [place] [address] Organization [facility] Care Team Providers [employer] Cook Name Role Phone DEIRDRE ADAN Unavailable Unavailable DEIRDRE ADAN Unavailable Unavailable Unavailable Primary Care Provider Unavailabl e Allergies Allergy Classification Reported Allergen(s) Allergy Type Date of Onset Reaction(s) Facility (3 sources) amLODIPine; Translations: [AMLODIPINE] Drug Allergy 05-27-[address] [facility] (3 sources) atorvastatin; Translations: [ATORVASTATIN] Drug Allergy 04-18-2007 [facility] Work Phone: (3 sources) ezetimibe; Translations: [EZETIMIBE] Drug Allergy 01-26-2006 [facility] Work Phone: (3 sources) Lisinopril; Translations: [LISINOPRIL] Drug Allergy 05-27-[address] [facility] (3 sources) Simvastatin; Translations: [SIMVASTATIN] Drug Allergy 12-22-2005 [facility] Work Phone: Medications Current Medications Medication Drug Class(es) Dates Sig (Normalized) Sig (Original) molnupiravir 200 mg capsule (2 sources) Start: 01-07-2023 End: 01-12-2023 take 4 capsules by mouth twice daily molnupiravir 200 mg capsule Indications: Suspected COVID-19 virus infection Take 4 capsules by mouth two times a day for 5 days. 40 capsule 0 01/07/2023 01/12/2023 Active Completed/Discontinued Medications Medication Drug Class(es) Dates Sig (Normalized) Sig (Original) 0.4 ml adalimumab 100 mg/ml auto-injector (2 sources) Tumor Necrosis Factor Malvin Start: 12-08-2022 HUMIRA,CF, PEN 40 mg/0.4 mL pen kit ARIPiprazole 5 mg oral tablet (2 sources) Atypical Antipsychotic Start: 12-07-2022 ARIPiprazole (ABILIFY) 5 mg tablet aspirin 81 mg delayed release oral tablet (2 sources) Platelet Aggregation Inhibitor, Nonsteroidal Anti-inflammatory Drug Start: 07-11-2015 take 1 tablet by mouth once daily aspirin, enteric coated (ADULT LOW DOSE ASPIRIN) 81 mg EC tablet Take 1 tablet by mouth once daily. 0 07/11/2015 Active Problems Active Problems Problem Classification Problem Date Documented Date Episodic/Chronic Diabetes mellitus with complications (2 sources) Type 2 diabetes mellitus; Translations: [Type 2 diabetes mellitus with other diabetic kidney complication] Onset: 10-28-2016 10-28-2016 Chronic Disorders of lipid metabolism (2 sources) Hyperlipidemia; Translations: [Hyperlipidemia, unspecified] Onset: 02-04-2005 02-04-2005 Chronic Esophageal disorders (2 sources) Gastroesophageal reflux disease; Translations: [Gastro-esophageal reflux disease without esophagitis] Onset: 02-04-2005 02-04-2005 Chronic Immunizations and screening for infectious disease (1 source) Suspected disease caused by 2019-nCoV; Translations: [Suspected COVID-19 virus infection] 01-07-2023 Episodic Mood disorders (2 sources) Depressive disorder; Translations: [Other specified depressive episodes] Onset: 02-04-2005 02-04-2005 Chronic Other upper respiratory disease (2 sources) Allergic rhinitis; Translations: [Allergic rhinitis, unspecified] Onset: 02-04-2005 02-04-2005 Chronic Residual codes; unclassified (2 sources) Sleep apnea; Translations: [Sleep apnea, unspecified] 11-16-2005 Chronic Past or Other Problems Problem Classification Problem Date Documented Date Episodic/Chronic Disorders of teeth and jaw (2 sources) Temporomandibular joint disorder; Translations: [Unspecified temporomandibular joint disorder, unspecified side] Onset: 11-16-2005 11-16-2005 Episodic Headache; including migraine (2 sources) Headache; Translations: [Headache] Onset: 11-16-2005 11-16-2005 Episodic Other screening for suspected conditions (not mental disorders or infectious disease) (2 sources) Mammography abnormal; Translations: [Other abnormal and inconclusive findings on diagnostic imaging of breast] Onset: 04-05-2005 04-05-2005 Episodic Residual codes; unclassified (2 sources) Edema; Translations: [Edema, unspecified] Onset: 02-04-2005 02-04-2005 Episodic Results Test Name Value Interpretation Reference Range Facil ity Encounters Encounter Date Encounter Type Care Provider Facility Start: 01-07-2023 Telephone encounter Manjula Meyers APRN.CNP Work Phone: [facility] Procedures Date Procedure Procedure Detail Performing Clinician Start: 03-16-2011 Colonoscopy Manjula Meyers APRN.CNP Work Phone: Plan of Treatment Date Care Activity Detail Author Start: 10-22-2022 Influenza vaccination Influenza Vacc ine (#1) [facility] Start: 02-21-2022 Advance Directive Discussion Advance Directive Discussion [facility] Start: 11-13-2019 Bone Density Screening Bone Density Screening [facility] Start: 12-06-2017 Hemoglobin A1c/Hemoglobin.total in Blood HbA1C [facility] Start: 10-29-2017 Hepatitis B screening Urine Al bumin:Creatinine Ratio [facility] Start: 10-29-2017 Hepatitis B surface antibody level LDL Cholesterol [facility] Start: 03-16-2016 Colonoscopy Colonoscopy [facility] Start: 03-16-2016 Colorectal Cancer Screening Colorectal Cancer Screening [facility] Start: 2014 Hepatitis B Vaccine (1 of 3 - Risk 3-dose series) Hepatitis B Vaccine (1 of 3 - Risk 3-dose series) [facility] Start: 2014 RSV Vaccine (1 - 1-d ose 60+ series) RSV Vaccine (1 - 1-dose 60+ series) [facility] Start: 03-07-2012 Mammography Mammogram Screening [facility] Start: 11-22-2011 Pneumococcal Vaccine : 65+ (2 - PCV) Pneumococcal Vaccine: 65+ (2 - PCV) [facility] Start: 11-13-1999 Cologuard (FIT-DNA) Cologuard (FIT-D NA) [facility] Start: 11-13-[address] Colonography [facility] Start: 11-13-1999 Fecal Occult Blood Fecal Occult Bloo d [facility] Start: 11-13-1999 Sigmoidoscopy Sigmoidoscopy [facility] Start: 1973 Shingrix Vaccine (1 of 2) Shingrix V accine (1 of 2) [facility] Start: 1973 Urine microalbumin profile DTa P,Tdap,Td Vaccine (1 - Tdap) [facility] Start: 1972 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 Disease Visit Annual PCP Team Chronic Disease Visit [facility] Start: 1972 Hepatitis C Screening Hepatitis C Justin zheng [facility] Start: 1964 3 comp foot exam completed Diabetic Foot Exam [facility] Start: 1964 Hepatitis C antibody , confirmatory test Dilated Retinal Exam [facility] Start: 11-13-1959 Covid-19 Vaccine (#1) Covid-19 Vacci ne (#1) [facility] Immunizations Immunization Date Immunization Notes Care Provider Fa clydety 11-21-2010 pneumococcal polysaccharide vaccine, 23 valent Manjula Meyers [employer]COMPUTER TESTER Work Phone: [facility] Payers Date Payer Category Payer Medicare MEDICARE MEDICAR E A AND B [id number] 2019-Present [phone] [place] [address] Medicare [id number] 2019 Medicare [id number] 2017 [employer] ( and others) [id number] 2008 Unknown Social History Date Type Detail Facility Start: 01-06-2023 Tobacco smoking stat us OHIS Never smoked tobacco [facility] Start: 01-06-2023 Tobacco use and exposure Smoke less tobacco non-user [facility] Start: 01-06-2023 Alcohol intake Current drinke r of alcohol (finding) [facility] Start: 01-27-2020 End: 01-06-2023 History of Social function [facility] Start: 01-27-2020 End: 01-06-2023 Tobacco use panel [facility] National Score (1-10 0), lower number is lower risk Not on file [facility] Start: 01-06-2023 Tobacco Comment One year of light sm oking [facility] Start: 1955 Sex Assigned At Not on file C [facility] Medical Equipment Procedure Code Equipment Code Equipment Origin al Text Equipment Identifier Dates use 4 times a da y with insulin pen Start: 10-29-2015 Note 01-07-2023 Telephone Encounter - Manjula Meyers APRN.XOCHILT - 01/07/2023 9:47 AM EST Note Date & Type Note Facility 01-07-2023 Miscellaneous Notes Formattin g of this note might be different from the original. Brunoon error about mono it was the antiviral mediation prescription that is sitting up front thank you documented in this encounter [facility] Note 01-07-2023 Telephone Encounter - Teodora Duarte LPN - 01/07/2023 9:21 AM ESTTelephone Encounter - Manjula Meyers APRN.XOCHILT - 01/07/2023 8:58 AM EST Note Date & Type Note Facility 01-07-2023 Miscellaneous Notes Formattin g of this note might be different from the original. Patient notified and verbalized understanding of instructions given.Teodora Duarte LPN Patient was positive for COVID patient should quarantine for 5 days mask for another 5 days. Hard prescription of mono. Inferior is at the desk and someone can come pick it up and find a pharmacy that carries it. Kyra Sheffield in [place] had it last we checked. documented in this encounter [facility] Progress note 01-06-2023 Note Date & Type Note Facility 01-06-2023 Note HNO ID: [id number] Author: Rodrigo Corcoran APRN.XOCHILT Service: ? Author Type: Nurse Practitioner Type: Progress Notes Filed: 01/06/2023 12:42 PM Note Text: Subjective HPI Nontoxic-appearing female presents urgent care accompanied by sister. Chief complaint COVID-19 concerns. Duration of symptoms 4 days. Associated symptoms body aches chills fatigue cough headache runny nose. Does have a scratchy throat. This has improved. Was recently in contact with individual who tested positive for COVID-19. Has not used any OTC medications today. Denies any significant pain. Vaccinated against COVID-19. Risk factors age and diabetes. Denies any fever body aches chills productive cough chest pain shortness of breath pleuritic pain hemoptysis nausea vomiting abdominal pain change in bowel or bladder habits. Past medical history prescription medication use and allergies reviewed. .Patient presents with: Fatigue: With body aches, runny nose, cough PAST MEDICAL HISTORY Diagnosis Date Allergic rhinitis, cause unspecified 02/04/2005 Depressive disorder, not elsewhere classified 02/04/2005 Diabetes mellitus without mention of complication 2007 Last Hgb A1C was 6.6 and is thought to be due to increase weight Edema 02/04/2005 Esophageal reflux 02/04/2005 Other and unspecified hyperlipidemia 02/04/2005 Unspecified hypothyroidism Unspecified sleep apnea On [facility] PAST SURGICAL HISTORY Procedure Laterality Date BIOPSY BREAST OPEN INCISIONAL x2 Bx of breast, incisional PAST SURGICAL HISTORY OF 1985 cone bx PAST SURGICAL HISTORY OF 2004 breast implant removal ALLERGIES Atorvastatin, Lisinopril, Norvasc [Amlodipine], Zetia [Ezetimibe], and Zocor [Simvastatin] MEDICATIONS ARIPiprazole (ABILIFY) 5 mg tablet HUMIRA,CF, PEN 40 mg/0.4 mL pen kit sertraline (ZOLOFT) 100 mg tablet Take 100 mg by mouth once daily. Cholecalciferol, Vitamin D3, 1,000 unit cap Take 1,000 Units by mouth once daily. insulin needles, DISPOSABLE, (PEN NEEDLE) 31 gauge x 5/16 ndle use 4 times a day with insulin pen DULoxetine (CYMBALTA) 60 mg capsule Take 1 capsule by mouth once daily. aspirin, enteric coated (ADULT LOW DOSE ASPIRIN) 81 mg EC tablet Take 1 tablet by mouth once daily. pantoprazole DR (PROTONIX) 40 mg tablet Take 1 tablet by mouth twice daily. multivitamin (DAILY MULTIPLE) tablet Take 1 tablet by mouth once daily. FLUTICASONE PROPIONATE (FLONASE NASAL) Use 50 mcg in the nose as needed. CLOBETASOL PROPIONATE (CLOBETASOL 17 PROPIONATE MISC) 0.05 %. traZODone (DESYREL) 100 mg tablet 1-2 tablets daily at bedtime as PRN LEVOTHYROXINE SODIUM (SYNTHROID ORAL) Take 75 mcg by mouth once daily. rosuvastatin (CRESTOR) 20 mg tablet Take 20 mg by mouth once daily. metFORMIN 1,000 mg ORAL tablet Take 1,000 mg by mouth daily with breakfast. insulin glargine (LANTUS SOLOSTAR U-100 INSULIN) 100 unit/mL (3 mL) inpn Inject 25 Units subcutaneously daily at bedtime. (Patient not taking: Reported on 01/06/2023) insulin aspart U-100 (NOVOLOG FLEXPEN U-100 INSULIN) 100 unit/mL inpn 6 units with each meal, plus sliding scale with each meal, max daily dose 50 units. (Patient not taking: Reported on 01/06/2023) atenolol (TENORMIN) 25 mg tablet Take 1 tablet by mouth twice daily. (Patient not taking: Reported on 01/06/2023) buPROPion HCl (WELLBUTRIN SR) 200 mg 12 hr tablet Take 1 tablet by mouth twice daily. (Patient not taking: Reported on 01/06/2023) ranitidine (ZANTAC) 150 mg tablet Take 1 tablet by mouth daily at bedtime. (Patient not taking: Reported on 01/06/2023) coenzyme Q10 (CO Q-10) 100 mg cap capsule Take 2 capsules by mouth once daily. (Patient not taking: Reported on 01/06/2023) BIOTIN/CALCIUM CARBONATE (BIOTIN 100+10 ORAL) Take 100 mg by mouth once daily. (Patient not taking: Reported on 01/06/2023) desonide (DESOWEN) 0.05 % cream Apply 0.05 application to affected area twice daily. 2x/day weekends (Patient not taking: Reported on 01/06/2023) ERGOCALCIFEROL, VITAMIN D2, (VITAMIN D ORAL) Take 50,000 Units by mouth once each week. (Patient not taking: Reported on 01/06/2023) traZODONE 100 mg ORAL tablet Take 100 mg by mouth daily at bedtime. (Patient not taking: Reported on 01/06/2023) FAMILY HISTORY Problem Relation Age of Onset Breast Cancer Mother Alive with CVA, Hypothyroid, HTN Hypertension Father Alive None Sister Social History Tobacco Use Smoking status: Never Smokeless tobacco: Never Tobacco comments: One year of light smoking Substance Use Topics Alcohol use: Yes Comment: rare Drug use: Yes Comment: History of diet pills in the early 90's BP 130/64 Pulse 65 Temp 36.6 ?C (97.9 ?F) Resp 16 Wt 74.4 kg (164 lb) SpO2 97% BMI 26.47 kg/m? Review of Systems Constitutional: Positive for chills and malaise/fatigue. Negative for fever. HENT: Positive for congestion and sore throat. Negative for ear discharge, ear pain and sinus pain. E (more content not included)... [facility] Evaluation note Note Date & Type Note Facility documented in this encounter [facility] Summary Purpose Family History No Family History Records FoundNo Family History Records Found Advance Directives No Advanced Directives Records FoundNo Advanced Directives Records Found Health Concerns Infection Onset Date Last Indicated Resolved Time COVID-19 Rule-Out 01/06/2023 01/06/2023 01/07/2023 12:50 AM EST COVID-19 Confirmed 01/06/2023 01/06/2023 Additional Source Comments INFORMATION SOURCE (unrecogn ized section and content) DATE CREATED AUTHOR AUTHOR'S ORGANIZ ATION 01/08/2023 [facility] Source Comments (unrecognize d section and content) In the event this informatio n is protected by the Federal Confidentiality of Alcohol and Drug Abuse Patient Records regulations: The Federal rules restrict any use of the information to criminally investigate or prosecute any alcohol or drug abuse patient.[facility] the event this information is protected by the Federal Confidentiality of Alcohol and Drug Abuse Patient Records regulations: The Federal rules restrict any use of the information to criminally investigate or prosecute any alcohol or drug abuse patient.[facility] Reason for Visit (unrecogniz ed section and content) Reason Comments Results FOR RECORDS PERTAINING TO PATIENTS WHO ARE OR HAVE BEEN ENROLLED IN A CHEMICAL DEPENDENCY/SUBSTANCEABUSE PROGRAM, SOME INFORMATION MAY BE OMITTED. This clinical summary was aggregated from multiple sources. Caution should be exercised in using it in the provision of clinical care. This summary normalizes information from multiple sources, and as a consequence, information in this document may materially change the coding, format and clinical context of patient data. In addition, data may be omitted in some cases. CLINICAL DECISIONS SHOULD BE BASED ON THE PRIMARY CLINICAL RECORDS. [facility]. provides no warranty or guarantee of the accuracy or completeness of information in this document.
== END 2023-03-01 04:31 | disposition home or self-care (01) ==
LOC: ED 04:27
PROVIDERS: Emergency Provider Emergency Medicine; Visit Provider Emergency Medicine
DX: E11.649 Type 2 diabetes mellitus with hypoglycemia without coma (principal); Z87.891 Personal history of nicotine dependence; I69.319 Unspecified symptoms and signs involving cognitive functions following cerebral infarction; E78.00 Pure hypercholesterolemia, unspecified; I10 Essential (primary) hypertension; Z79.899 Other long term (current) drug therapy; K21.9 Gastro-esophageal reflux disease without esophagitis; Z79.82 Long term (current) use of aspirin; Z79.85 Long-term (current) use of injectable non-insulin antidiabetic drugs
CPT/HCPCS: 82962; 99282

== ENCOUNTER 2023-07-08 19:55 | Emergency (ER) | payer MEDICARE, OTHER, SELFPAY ==
[2023-07-08 19:55] VITALS: BP 147/70; PULSE 77; RESP 15; TEMP 36.6; O2SAT 95; BMI 25.1
--- NOTE | 2023-07-08 20:41 | EKG12_ITS ---
Test Reason : CP Blood Pressure : / mmHG Vent. Rate : 072 BPM Atrial Rate : 072 BPM P-R Int : 164 ms QRS Dur : 078 ms QT Int : 392 ms P-R-T Axes : 030 -06 038 degrees QTc Int : 429 ms Normal sinus rhythm Normal ECG Confirmed by Pino Casey ([id number]), index editor CLAUDIO IVORY ([id number]) on 07/11/2023 8:51:12 AM Referred By: ROBER Confirmed By:Pino Casey
--- NOTE | 2023-07-08 20:45 | RAD_ITS ---
INDICATION: CHEST PAIN EXAMINATION/TECHNIQUE: X-RAY - XR Chest 2 Views COMPARISON: None. FINDINGS: The lungs are clear. The cardiomediastinal silhouette is unremarkable. No pleural effusion or pneumothorax. Degenerative changes of the thoracic spine. RAD/Chest PA and Lateral IMPRESSION: No acute radiographic abnormalities. Electronically Signed: Freddie Cavazos MD at 20:59 EDT ,
--- NOTE | 2023-07-08 20:47 | ED.VIS.CHEST ---
HPI History of Present Illness Chief Complaint: Chest Pain Informant: patient Onset/Context/Timing Onset: Hours (1) Activity at onset: sudden Timing: Intermittent (x1) and Lasts (15-20 sec) Quality: Positive for Pain Location: Substernal (Lower substernal without radiation) Current Severity: Gone Maximum Severity: Severe Narrative Narrative: 67-year-old female brought by her sister, the patient lives alone and had a severe episode of chest discomfort that she has never had before just prior to arrival. Sister states she has a history of mild cognitive impairment which is why she came with her to help out. She does not have a history of any heart or lung problems. She feels fine now. She has been vomiting off-and-on since she has been on Ozempic, they think it is related to that, and she has had quite a few episodes of vomiting in the last week or 2, including this morning. CVD Risk Factors: Positive for Hypertension and Diabetes; Negative for Hypercholesterolemia, Family History 1' </=55 or Smoking PE Risk Factors: Negative for Recent Travel/Surgery, Recent Immobilization, Prior DVT or PE, Cancer or OCP + Smoking + >/=35 PFSH [facility] Medical History Post-menopausal Anxiety Psoriasis Thyroid disease High cholesterol Dietary restriction CPAP (continuous positive airway pressure) dependence Sleep apnea Depression GERD (gastroesophageal reflux disease) Hypertension TIA (transient ischemic attack) Diabetes Home Medications ?Medication ?Instructions ?Recorded ?Last Taken ?Type aripiprazole 2 mg tablet 2.5 mg PO BID 08/01/19 Unknown History cholecalciferol (vitamin D3) 50 2,000 unit PO DAILY 08/01/19 Unknown History mcg (2,000 unit) capsule fluticasone propionate 50 1 spray NS DAILY PRN Congestion 08/01/19 Unknown History mcg/actuation nasal spray,suspension levothyroxine 75 mcg tablet 100 mcg PO DAILY 08/01/19 Unknown History metformin 1,000 mg tablet 1,000 mg PO DINNER 08/01/19 Unknown History montelukast 10 mg tablet 10 mg PO QHS 08/01/19 Unknown History pantoprazole 20 mg tablet,delayed 20 mg PO Q12H 08/01/19 Unknown History release rosuvastatin 40 mg tablet 40 mg PO QHS 08/01/19 Unknown History trazodone 100 mg tablet 100 mg PO QHS sleep 08/01/19 Unknown History empagliflozin 25 mg tablet 25 mg PO DAILY 09/28/21 Unknown History ferrous sulfate 325 mg (65 mg 325 mg PO DAILY 09/28/21 Unknown History iron) tablet multivitamin 1 tab PO DAILY 09/28/21 Unknown History acetaminophen 325 mg tablet 650 mg PO Q6H PRN pain 01/03/23 Unknown History adalimumab 40 mg/0.4 mL 40 mg subcut Q2W 01/03/23 Unknown History subcutaneous pen kit (Humira(CF) Pen) aspirin 81 mg tablet,delayed 81 mg PO DAILY 01/03/23 Unknown History release calcipotriene 0.005 % topical cream 1 applic topical BID 01/03/23 Unknown History dextrose 6 gram/15 mL oral gel 10 g PO Q15M PRN hypoglycemia 01/03/23 Unknown History diclofenac sodium 1 % topical gel 2 g topical ONCE 01/03/23 Unknown History divalproex 250 mg tablet,extended 750 mg PO QHS 01/03/23 Unknown History release 24 hr naltrexone 50 mg tablet 50 mg PO DAILY 01/03/23 Unknown History sertraline 100 mg tablet 200 mg PO DAILY 01/03/23 Unknown History urea 40 % topical cream 1 applic topical DAILY 01/03/23 Unknown History clobetasol 0.05 % topical ointment 1 applic topical BID 03/01/23 Unknown History hydrochlorothiazide 25 mg tablet 25 mg PO DAILY 03/01/23 Unknown History semaglutide 0.25 mg or 0.5 mg (2 0.25 mg subcut QWEEK 07/08/23 Unknown History mg/3 mL) subcutaneous pen injector (Ozempic) ondansetron 8 mg disintegrating 8 mg PO Q8H PRN nausea and 07/09/23 Unknown Rx tablet vomiting #20 tabs Allergy/AdvReac Type Severity Reaction Status Date / Time amlodipine Allergy PT UNABLE Verified 07/08/23 19:56 TO RESPOND-NEEDS F/U atorvastatin (From Lipitor) Allergy PT UNABLE Verified 07/08/23 19:56 TO RESPOND-NEEDS F/U ezetimibe (From Zetia) Allergy PT UNABLE Verified 07/08/23 19:56 TO RESPOND-NEEDS F/U lisinopril Allergy PT UNABLE Verified 07/08/23 19:56 TO RESPOND-NEEDS F/U simvastatin (From Zocor) Allergy PT UNABLE Verified 07/08/23 19:56 TO RESPOND-NEEDS F/U LOSARTAN Allergy PT UNABLE Uncoded 04/04/23 10:06 TO RESPOND-NEEDS F/U Surgical History History of colonoscopy S/P cataract extraction Social History Smoking Status: Former smoker alcohol intake: current alcohol intake frequency: holidays/special occasions only Alcohol type: wine substance use type: does not use ROS ROS ED Constitutional Constitutional ED: Denies chills or fever(s) Eyes Eyes: Denies change in vision or diplopia ENT ENT ED: Denies rhinorrhea or sore throat Cardiovascular Cardiovascular: Reports chest pain; Denies palpitations Respiratory/Chest Respiratory/Chest: Denies cough or dyspnea Gastrointestinal Gastrointestinal: Reports as per HPI and vomiting; Denies abdominal pain or diarrhea Genitourinary Genitourinary ED: Denies dysuria or hematuria Musculoskeletal Musculoskeletal: Denies back pain or neck pain Integumentary Denies abscess or rash Neurologic Neurologic: Denies headache(s), paresthesias or weakness Psychiatric Psychiatric: Denies anxiety or suicidal thoughts EXAM Physical Exam Const Vital Signs: 07/08/23 19:55 07/08/23 20:00 07/08/23 21:22 Temperature 97.8 F Temperature Source Oral Pulse Rate 77 Respiratory Rate 15 Respiratory Effort Normal Non-Labored Blood Pressure 147/70 H Blood Pressure Mean 95 Pulse Ox 95 Oxygen Delivery Method Room Air Room Air 07/08/23 21:22 07/08/23 22:00 07/08/23 23:00 Temperature Temperature Source Pulse Rate 67 63 67 Respiratory Rate 19 H 17 14 Respiratory Effort Blood Pressure 115/68 112/73 130/70 H Blood Pressure Mean 83 86 90 Pulse Ox 96 96 96 Oxygen Delivery Method Room Air Room Air Room Air 07/09/23 00:01 Temperature 98.4 F Temperature Source Pulse Rate 71 Respiratory Rate 17 Respiratory Effort Blood Pressure 144/77 H Blood Pressure Mean 99 Pulse Ox 96 Oxygen Delivery Method Positive well nourished and well developed General Appearance ED: well developed and NAD HEENT Reports moist mucous membranes normocephalic and atraumatic Eyes PERRL and EOMs intact bilaterally Neck full ROM, no lymphadenopathy, supple and no JVD Chest Wall inspection of chest normal and palpation of chest normal Resp normal respiratory effort and clear to auscultation bilaterally Cardio regular rate, regular rhythm and no murmurs Rate: Negative for tachycardic GI non-tender and non-distended Auscultation: normoactive bowel sounds Palpation: soft Back/Spine no CVA tenderness General Back: other FROM Extremity normal to inspection General Extremety ED: Negative for edema, pulses abnormal or tenderness General Extremity: Negative for edema or pulses abnormal Neuro oriented x3, CN's II-XII intact bilaterally and no sensory deficits noted Sensorium / Orientation: awake and alert Motor Exam: strength 5/5 throughout Psych mental status grossly normal Skin no rashes or lesions noted and no wounds Heart Score History: Slightly/Non-Suspicious ECG: Normal Age: >/= 65 years Risk Factors: 1 or 2 Risk Factors Troponin: </= Normal Limit Score: 3 MDM MDM MDM Narrative Medical decision making narrative: EKG obtained and is normal in my interpretation, 1 view chest x-ray normal my interpretation. Patient asymptomatic with normal vital signs throughout her stay, no recurrence of symptoms. Initial troponin 3. Repeat troponin to hours later, less than 3. Patient reassured, not likely to be cardiac in etiology given her low heart score and 2 negative troponins with a normal EKG. I suggest this may be esophageal in etiology, although not able to rule that in or rule it out especially since her symptoms are resolved now. We discussed reasons to return to the ER she is comfortable with that plan on going to prescribe her some Zofran to use as needed due to her occasional episodes of nausea and vomiting. Close outpatient follow-up encouraged. Lab Data Attestation: I reviewed the patient's lab results. Labs: Laboratory Results - last 24 hr 07/08/23 07/08/23 19:57 22:00 WBC 6.2 RBC 4.33 Hgb 12.4 Hct 37.7 MCV 87.1 MCH 28.6 MCHC 32.9 RDW Std Deviation 46.5 H RDW Coeff of Lacie 14.6 Plt Count 205 MPV 10.7 Immature Gran % (Auto) 0.600 Neut % (Auto) 60.9 Lymph % (Auto) 29.3 [place] % (Auto) 8.4 Eos % (Auto) 0.3 Baso % (Auto) 0.5 Absolute Neuts (auto) 3.8 Absolute Lymphs (auto) 1.82 Nucleated RBC % 0 Sodium 138 Potassium 3.9 Chloride 100 Carbon Dioxide 31.0 Anion Gap 7 BUN 19 H Creatinine 0.79 Estim Creat Clear Calc 63.01 Est GFR (MDRD) Af Amer 93 Est GFR (MDRD) Non-Af 77 BUN/Creatinine Ratio 24.0 H Glucose 156 H Calcium 9.4 Troponin I High Sens 3 < 3 L Rhythm Strip Rhythm Strip: Sinus Rhythm Rate: 72 Ectopy: None EKG Initial EKG: Attestation: I personally reviewed and interpreted this EKG as follows: Interpretation: Sinus Rhythm and No Acute Injury Pattern Comments: Normal EKG Discharge Plan Triage Chief Complaint: Chest Pain ED Provider: Pablo Hernandez Dx/Rx/DC Orders Clinical Impression: Chest pain, unspecified Instructions: ED Chest Pain, Uncertain Cause Prescriptions: New ondansetron 8 mg tablet,disintegrating 8 mg PO Q8H PRN (Reason: nausea and vomiting) Qty: 20 0RF No Action acetaminophen 325 mg tablet 650 mg PO Q6H PRN (Reason: pain) naltrexone 50 mg tablet 50 mg PO DAILY aspirin 81 mg tablet,delayed release (DR/EC) 81 mg PO DAILY calcipotriene 0.005 % cream 1 applic topical BID divalproex 250 mg tablet extended release 24 hr 750 mg PO QHS diclofenac sodium 1 % gel 2 g topical ONCE Rx Instructions: apply to single elbow, wrist or hand; for hand includes palm/fingers/back of hand dextrose 6 gram/15 mL gel 10 g PO Q15M PRN (Reason: hypoglycemia) Rx Instructions: until symptoms of low blood sugar are controlled urea 40 % cream 1 applic topical DAILY Humira(CF) Pen 40 mg/0.4 mL pen injector kit 40 mg subcut Q2W fluticasone propionate 9.9 ML spray,suspension 1 spray NS DAILY PRN (Reason: Congestion) aripiprazole 2 MG tablet 2.5 mg PO BID cholecalciferol (vitamin D3) 2,000 UNIT capsule 2,000 unit PO DAILY pantoprazole 20 MG tablet,delayed release (DR/EC) 20 mg PO Q12H levothyroxine 75 MCG tablet 100 mcg PO DAILY trazodone 100 MG tablet 100 mg PO QHS metformin 1,000 MG tablet 1,000 mg PO DINNER montelukast 10 MG tablet 10 mg PO QHS rosuvastatin 40 MG tablet 40 mg PO QHS sertraline 100 mg tablet 200 mg PO DAILY multivitamin Tablet 1 tab PO DAILY ferrous sulfate 325 mg (65 mg iron) Tablet 325 mg PO DAILY empagliflozin 25 mg Tablet 25 mg PO DAILY clobetasol 0.05 % ointment 1 applic TOPICAL BID hydrochlorothiazide 25 mg tablet 25 mg PO DAILY Ozempic 0.25 mg or 0.5 mg (2 mg/3 mL) pen injector 0.25 mg subcut QWEEK Rx Instructions: tuesday Primary Care Provider: [facility] Referrals: Doctor,Your [Non-Staff] - As soon as possible Print Language: Algerian Disposition Disposition: Home, Self Care
[2023-07-08 20:53] LABS: Absolute Lymphocyte Count 1.82 X10^3/uL (0.83-4.51); Absolute Neutrophil Count 3.8 X10^3/uL (2.0-7.7); Basophil# 0.03 X10^3/uL; Basophil% 0.5 % (0-1); Eosinophil# 0.02 X10^3/uL; Eosinophils% 0.3 % (0-5); Hematocrit 37.7 % (37-47); Hemoglobin 12.4 g/dL (12.0-15.0); Lymphocyte # 1.82 X10^3/ul (0.83-4.51); Lymphocyte % 29.3 % (19-41); Mean Corp Hgb Conc 32.9 g/dL (32-36); Mean Corpuscular Hgb 28.6 pg (27.0-32.0); Mean Corpuscular Volume 87.1 fL (81-99); Mean Platelet Vol. 10.7 fl (6.2-12.0); Monocyte# 0.52 X10^3/uL; Monocyte% 8.4 % (0-10); NRBC Flagged by Analyzer 0 % (0-5); Neutrophil # 3.78 X10^3/uL (2.7-7.7); Neutrophil % 60.9 % (47-70); Platelet Count 205 K/mm3 (150-450); RBC Distribution Width CV 14.6 % (11.6-14.6); RBC Distribution Width SD 46.5 fl (35.1-43.9); Red Blood Count 4.33 M/mm3 (4.2-5.4); White Blood Count 6.2 K/mm3 (4.4-11.0)
[2023-07-08 21:14] LABS: Anion Gap 7 (5-15); BUN 19 mg/dL (7-18); Calcium,Total 9.4 mg/dL (8.5-10.1); Chloride 100 mmol/L (98-107); Creatinine, Serum 0.79 mg/dL (0.55-1.02); EST Glomerular Filtration Rate 77 mL/min (>60); Est Glom Filt Rate - Afr Amer 93 mL/min (>60); Estimated Creatinine Clearance 63.01 ml/min; Glucose 156 mg/dL (74-106); Potassium 3.9 mmol/L (3.5-5.1); Sodium Level 138 mmol/L (136-145); Troponin-I HS (w/2H Reflex) 3 pg/mL (3.0-54.0)
[2023-07-08 21:22] VITALS: BP 115/68; PULSE 67; RESP 19; O2SAT 96
[2023-07-08 22:00] VITALS: BP 112/73; PULSE 63; RESP 17; O2SAT 96
[2023-07-08 22:50] LABS: Reflex Troponin-HS? (from REC) Y
[2023-07-08 23:00] VITALS: BP 130/70; PULSE 67; RESP 14; O2SAT 96
[2023-07-08 23:09] LABS: Troponin-I HS < 3 pg/mL (3.0-54.0)
[2023-07-09 00:01] VITALS: BP 144/77; PULSE 71; RESP 17; TEMP 36.9; O2SAT 96
== END 2023-07-09 00:33 | disposition home or self-care (01) ==
PROVIDERS: Emergency Provider Emergency Medicine; Visit Provider Emergency Medicine
DX: R07.9 Chest pain, unspecified (principal); E11.9 Type 2 diabetes mellitus without complications; I10 Essential (primary) hypertension; Z87.891 Personal history of nicotine dependence; E78.00 Pure hypercholesterolemia, unspecified; G47.30 Sleep apnea, unspecified; Z99.89 Dependence on other enabling machines and devices; Z86.73 Personal history of transient ischemic attack (TIA), and cerebral infarction without residual deficits; F32.A Depression, unspecified; Z79.899 Other long term (current) drug therapy; Z79.84 Long term (current) use of oral hypoglycemic drugs; K21.9 Gastro-esophageal reflux disease without esophagitis; F41.9 Anxiety disorder, unspecified; Z79.85 Long-term (current) use of injectable non-insulin antidiabetic drugs
CPT/HCPCS: 71046; 80048; 84484; 85025; 93005; 99283; A4216

== ENCOUNTER → 2024-03-19 | Outpatient (CLI) | payer MEDICARE, OTHER, SELFPAY ==
[2024-03-19 16:22] LABS: Valproic Acid (Depakene) Level 80 ug/mL (50-100)
== END | disposition home or self-care (01) ==
LOC: MTLAB 11:33
PROVIDERS: PCP Nurse Practitioner Adult Health; Referring Provider Psychiatry & Neurology Neurology; Visit Provider Psychiatry & Neurology Neurology
DX: R41.3 Other amnesia (principal)
CPT/HCPCS: 36415; 80164; 82140

== ENCOUNTER → 2024-03-21 | Outpatient (CLI) | payer MEDICARE, OTHER, SELFPAY ==
--- NOTE | 2024-03-21 11:49 | BI_ITS ---
PROCEDURE: SCRN MAMM (CAD)W/NIRANJAN BILAT REASON FOR EXAM: F, Age 68 y/o, mother with breast cancer. TECHNIQUE: Bilateral screening digital breast tomosynthesis with 2D and 3D images. Computer aided detection. COMPARISON: Prior exam(s) dating back to August 30, 2022.. FINDINGS: The breasts are heterogeneously dense which may obscure small masses. No suspicious masses, areas of developing architectural distortion, or suspicious calcifications. No change since prior study. BI/SCRN MAMM (CAD)W/NIRANJAN BILAT IMPRESSION: BI-RADS 1: NEGATIVE. RECOMMEND ANNUAL MAMMOGRAPHIC SCREENING. Follow-up code: Routine Follow-up The patient will be notified of the results by letter. Reading Location: [place] [id number]
== END | disposition home or self-care (01) ==
LOC: OPBI 11:48
PROVIDERS: PCP Nurse Practitioner Adult Health; Referring Provider Nurse Practitioner Adult Health; Visit Provider Nurse Practitioner Adult Health
DX: Z12.31 Encounter for screening mammogram for malignant neoplasm of breast (principal)
CPT/HCPCS: 77063; 77067

== ENCOUNTER → 2024-03-30 | Outpatient (CLI) | payer MEDICARE, OTHER, SELFPAY ==
[2024-03-30 09:54] LABS: Cholesterol 110 mg/dL (200); High Density Lipoprotein 48 mg/dL; T4 Free Direct 1.51 ng/dL (0.76-1.46); Thyroid Stim Hormone (TSH) 0.849 uIU/mL (0.358-3.740); Triglycerides 96 mg/dL; Very Low Density Lipoprotein 19 mg/dL (5-40)
== END | disposition home or self-care (01) ==
LOC: LAB 08:32
PROVIDERS: PCP Nurse Practitioner Adult Health; Referring Provider Nurse Practitioner Family; Visit Provider Nurse Practitioner Family
DX: E07.9 Disorder of thyroid, unspecified (principal); E78.00 Pure hypercholesterolemia, unspecified
CPT/HCPCS: 36415; 80061; 84439; 84443

== ENCOUNTER → 2024-06-28 | Outpatient (CLI) | payer MEDICARE, OTHER, SELFPAY ==
[2024-06-28 14:34] LABS: Microalbumin,Random Urine < 12.0 mg/L (NO RANGE EST.); Microalbumin:Creatinine Ratio UNABLE TO CALCULATE mg/g CRE
[2024-06-28 14:50] LABS: ALB/GLOB Ratio 1.7 RATIO (0.9-2.4); AST(SGOT) 25 U/L (<=31); Alanine Aminotransfer ALT/SGPT 21 U/L (<=34); Albumin, Serum 4.4 g/dL (3.4-4.8); Alkaline Phosphatase 28 U/L (35-104); Anion Gap 11 (5-15); BUN 18 mg/dL (4-19); Calcium,Total 9.5 mg/dL (7.6-11.0); Carbon Dioxide 28.4 mmol/L (21.0-32.0); Chloride 99 mmol/L (98-108); Cholesterol 117 mg/dL (<=200); Creatinine, Serum 0.84 mg/dL (0.70-1.20); EST Glomerular Filtration Rate 75 (>60); Globulin 2.6 g/dL (2.2-4.2); Glucose 93 mg/dL (70-99); High Density Lipoprotein 54 mg/dL; Low Density Lipoprotein Calc. 49 mg/dL; Potassium 4.4 mmol/L (3.3-5.1); Sodium Level 139 mmol/L (133-145); Total Bilirubin 0.23 mg/dL (0.00-1.30); Triglycerides 68 mg/dL; Very Low Density Lipoprotein 14 mg/dL (5-40); Vitamin D,25 Hydroxy 53.2 ng/mL (30-100); cholesterol:hdl ratio screen 2.16
== END | disposition home or self-care (01) ==
LOC: LAB 13:18
PROVIDERS: PCP Nurse Practitioner Adult Health; Referring Provider Nurse Practitioner Family; Visit Provider Nurse Practitioner Family
DX: E11.65 Type 2 diabetes mellitus with hyperglycemia (principal); E55.9 Vitamin D deficiency, unspecified
CPT/HCPCS: 36415; 80053; 80061; 82043; 82306; 82570; 84443